=== PATIENT | female | born 1945 | race Caucasian/White ===

== ENCOUNTER 2020-04-21 20:50 | Inpatient (IN) ==
[2020-04-21] MEDS ORDERED: Ipratropium/Albuterol Neb 3 ML IH ONE (21:05)
[2020-04-21] MEDS ORDERED: methylPREDNISolone 125 MG/2 ML VIAL IVP ONE (21:05)
[2020-04-21] MEDS ORDERED: Isovue-370 500 ML BOTTLE IVP ONE (21:06)
[2020-04-21] MEDS ORDERED: Piperacillin/Tazobactam 3.375 GM in 0.9 % Sodium Chloride Mini Bag 100 ML IVPB ONE (21:09)
[2020-04-21] MEDS ORDERED: Vancomycin 2,000 MG/520 ML IV.SOLN IVPB ONE (21:09)
[2020-04-21] MEDS ORDERED: Acetaminophen 325 MG TABLET PO ONE (21:10)
[2020-04-21 21:21] LABS: VBG HCO3 30 mEq/L (21-27); VBG PCO2 63 mmHg (41-51); VBG PH 7.28 pH Units (7.32-7.42); VBG PO2 36 mmHg (25-50)
[2020-04-21 21:21] LABS: Basophils % 0.4 %; Eosinophils # 0.2 K/mcL (0.0-0.6); Hematocrit 39.2 % (35.3-44.9); Hemoglobin 12.2 g/dL (11.5-15.4); Immature Granulocytes % 0.3 % (0-4); Lymphocytes # 1.8 K/mcL (0.6-4.6); Lymphocytes % 16.6 %; Mean Corpuscular HGB Conc 31.1 g/dL (31.6-35.5); Mean Corpuscular Volume 83.4 fL (83.0-100.0); Mean Platelet Volume 10.5 fL (9.4-12.4); Monocytes % 8.8 %; Neutrophils # 7.7 K/mcL (1.6-8.9); Platelet Count 273 K/mcL (140-400); Red Cell Distribution Width 14.2 % (11.5-14.5); Segmented Neutrophils % 71.9 %; White Blood Count 10.8 K/mcL (4.3-11.1)
[2020-04-21 21:25] LABS: INR 1.2; Prothrombin Time 13.4 Seconds (9.4-12.1)
[2020-04-21 21:50] LABS: Alanine Aminotransferase 9 Units/L (7-52); Albumin 3.9 g/dL (3.5-5.7); Albumin/Globulin Ratio 1.1 (1.1-2.2); Alkaline Phosphatase 67 Units/L (34-104); Aspartate Amino Transferase 15 Units/L (13-39); BUN/Creatinine Ratio 17 (6-26); Bilirubin,Direct 0.1 mg/dL (0.0-0.2); Bilirubin,Indirect 0.2 mg/dL (0.0-1.0); Bilirubin,Total 0.3 mg/dL (0.3-1.0); Blood Urea Nitrogen 10 mg/dL (8-23); Carbon Dioxide 27 mEq/L (23-29); Chloride 100 mEq/L (98-107); Globulin 3.7 g/dL (2.4-3.5); Glucose 117 mg/dL (70-105); Magnesium 1.8 mg/dL (1.6-2.6); Osmolality,Calculated 280 (280-300); Sodium 135 mEq/L (136-145); Total Protein 7.6 g/dL (6.4-8.9); Troponin I < 0.03 ng/mL (< 0.04); eGFR For African Americans > 60 (> 60); eGFR For Non-African Americans > 60 (> 60)
[2020-04-21 21:58] LABS: Bacteria,Urine Few per hpf (None-Few); Bilirubin,Urine Negative (Negative); Blood,Urine Negative (Negative); Calcium Oxalate Crystals,Urine Present; Clarity,Urine Clear (Clear); Color,Urine Light-Yellow (Yellow); Glucose,Urine (UA) Normal (Normal); Hyaline Casts,Urine Few per lpf (None Seen); Ketones,Urine Negative (Negative); Leukocyte Esterase,Urine Large (Negative); Mucus,Urine Few per lpf (None-Few); Nitrite,Urine Positive (Negative); Protein,Urine Negative (Neg-Trace); Squamous Epithelial Cell,Urine Few per hpf (None-Few); Urobilinogen,Urine Normal (Normal); WBC,Urine 15-30 per hpf (0-3)
[2020-04-21] MEDS ORDERED: Azithromycin 500 MG in 0.9 % Sodium Chloride 250 ML IVPB ONE (23:33)
[2020-04-22] MEDS ORDERED: Naloxone 0.4 MG/ML INJ IVP PRN (01:55)
[2020-04-22] MEDS ORDERED: Ondansetron 4 MG/2 ML VIAL IVP PRN (01:57)
[2020-04-22] MEDS ORDERED: Acetaminophen 325 MG TABLET PO PRN (01:57)
[2020-04-22] MEDS ORDERED: D5% in Water 1,000 ML IVC PRN (01:58)
[2020-04-22] MEDS ORDERED: *HR* Dextrose 50 % in Water (Vial) 50 ML VIAL IVP PRN (01:58)
[2020-04-22] MEDS ORDERED: Dextrose Gel 15 GM/37.5 ML TUBE PO PRN ×2 (01:58)
[2020-04-22 04:20] LABS: Hematocrit 37.8 % (35.3-44.9); Hemoglobin 11.5 g/dL (11.5-15.4); Mean Corpuscular HGB Conc 30.4 g/dL (31.6-35.5); Mean Corpuscular Hemoglobin 25.3 pg (28.0-33.3); Mean Corpuscular Volume 83.1 fL (83.0-100.0); Mean Platelet Volume 10.8 fL (9.4-12.4); Platelet Count 266 K/mcL (140-400); Red Blood Count 4.55 M/mcL (3.82-4.97); Red Cell Distribution Width 14.2 % (11.5-14.5); White Blood Count 8.6 K/mcL (4.3-11.1)
[2020-04-22 04:37] LABS: BUN/Creatinine Ratio 16 (6-26); Blood Urea Nitrogen 8 mg/dL (8-23); Calcium 8.9 mg/dL (8.6-10.3); Carbon Dioxide 26 mEq/L (23-29); Chloride 105 mEq/L (98-107); Glucose 159 mg/dL (70-105); Osmolality,Calculated 292 (280-300); Phosphorous 2.3 mg/dL (2.7-4.5); Potassium 3.5 mEq/L (3.5-5.1); Sodium 140 mEq/L (136-145); eGFR For African Americans > 60 (> 60); eGFR For Non-African Americans > 60 (> 60)
[2020-04-22 04:38] LABS: Troponin I < 0.03 ng/mL (< 0.04)
[2020-04-22] MEDS: Insulin LISPRO 300 UNITS/3 ML VIAL SQ SCH ×4 (06:12→17:29)
[2020-04-22] MEDS: Piperacillin/Tazobactam 3.375 GM in 0.9 % Sodium Chloride Mini Bag 100 ML IVPB SCH ×2 (08:40→17:16)
[2020-04-22] MEDS ORDERED: Vancomycin 1,250 MG/262.5 ML IV.SOLN IVPB SCH (10:00)
[2020-04-22] MEDS: MethylPREDNISolone 40 MG/ML VIAL IVP SCH (17:16)
[2020-04-22] MEDS ORDERED: clonazePAM 1 MG TABLET PO PRN (18:31)
[2020-04-22] MEDS: Budesonide/Formoterol 80/4.5 1 PUFF INH IH SCH (20:22)
[2020-04-22] MEDS: Nicotine 21 MG PATCH.TD24 TD SCH (20:29)
[2020-04-22] MEDS ORDERED: Ipratropium/Albuterol Neb 3 ML IH PRN (20:30)
[2020-04-22] MEDS: Azithromycin 500 MG in D5% in Water 250 ML IVPB SCH (20:35)
[2020-04-22] MEDS ORDERED: Gabapentin 300 MG CAPSULE PO SCH (21:00)
[2020-04-23] MEDS: Insulin LISPRO 300 UNITS/3 ML VIAL SQ SCH ×5 (00:07→21:31)
[2020-04-23] MEDS: Piperacillin/Tazobactam 3.375 GM in 0.9 % Sodium Chloride Mini Bag 100 ML IVPB SCH ×3 (00:08→16:58)
[2020-04-23] MEDS: MethylPREDNISolone 40 MG/ML VIAL IVP SCH ×3 (00:08→16:57)
[2020-04-23] MEDS: Vancomycin 1,250 MG/262.5 ML IV.SOLN IVPB SCH (00:11)
[2020-04-23] MEDS ORDERED: Gabapentin 300 MG CAPSULE PO PRN (00:27)
[2020-04-23] MEDS: Budesonide/Formoterol 80/4.5 1 PUFF INH IH SCH ×2 (07:59→20:47)
[2020-04-23] MEDS: Gabapentin 300 MG CAPSULE PO SCH ×3 (08:36→21:31)
[2020-04-23] MEDS: Nicotine 21 MG PATCH.TD24 TD SCH (08:37)
[2020-04-23] MEDS: amLODIPine 5 MG TABLET PO SCH (08:37)
[2020-04-23] MEDS: Venlafaxine XR (24 HR) 150 MG CAP.ER.24H PO SCH (08:38)
[2020-04-23] MEDS ORDERED: Gabapentin 300 MG CAPSULE PO SCH (09:00)
[2020-04-23] MEDS: Vancomycin 1,500 MG/265 ML IV.SOLN IVPB SCH (16:58)
[2020-04-23] MEDS: Azithromycin 500 MG in D5% in Water 250 ML IVPB SCH (21:32)
[2020-04-24] MEDS: MethylPREDNISolone 40 MG/ML VIAL IVP SCH ×3 (00:51→16:25)
[2020-04-24] MEDS: Piperacillin/Tazobactam 3.375 GM in 0.9 % Sodium Chloride Mini Bag 100 ML IVPB SCH ×3 (00:52→16:26)
[2020-04-24] MEDS: Vancomycin 1,500 MG/265 ML IV.SOLN IVPB SCH ×2 (00:52→13:05)
[2020-04-24] MEDS: Insulin LISPRO 300 UNITS/3 ML VIAL SQ SCH ×3 (05:33→16:25)
[2020-04-24 06:22] LABS: Basophils % 0.1 %; Hematocrit 37.1 % (35.3-44.9); Hemoglobin 11.4 g/dL (11.5-15.4); Immature Granulocytes % 1.1 % (0-4); Lymphocytes # 0.5 K/mcL (0.6-4.6); Lymphocytes % 5.5 %; Mean Corpuscular HGB Conc 30.7 g/dL (31.6-35.5); Mean Corpuscular Hemoglobin 25.9 pg (28.0-33.3); Mean Corpuscular Volume 84.3 fL (83.0-100.0); Mean Platelet Volume 10.9 fL (9.4-12.4); Monocytes # 0.3 K/mcL (0.0-1.3); Monocytes % 3.2 %; Neutrophils # 8.7 K/mcL (1.6-8.9); Platelet Count 289 K/mcL (140-400); Red Cell Distribution Width 14.1 % (11.5-14.5); Segmented Neutrophils % 90.1 %; White Blood Count 9.6 K/mcL (4.3-11.1)
[2020-04-24 06:23] LABS: INR 1.2; Prothrombin Time 13.7 Seconds (9.4-12.1)
[2020-04-24 06:41] LABS: BUN/Creatinine Ratio 30 (6-26); Blood Urea Nitrogen 15 mg/dL (8-23); Calcium 9.1 mg/dL (8.6-10.3); Carbon Dioxide 26 mEq/L (23-29); Chloride 106 mEq/L (98-107); Glucose 321 mg/dL (70-105); Osmolality,Calculated 301 (280-300); Potassium 3.9 mEq/L (3.5-5.1); Sodium 139 mEq/L (136-145); eGFR For African Americans > 60 (> 60); eGFR For Non-African Americans > 60 (> 60)
[2020-04-24] MEDS: Vancomycin 1,250 MG/262.5 ML IV.SOLN IVPB SCH (07:20)
[2020-04-24] MEDS ORDERED: *HR* Propofol 200 MG/20 ML VIAL IVP ONE (07:33)
[2020-04-24] MEDS ORDERED: Ondansetron 4 MG/2 ML VIAL ONE (07:33)
[2020-04-24] MEDS ORDERED: Dexamethasone 4 MG/ML VIAL ONE (07:33)
[2020-04-24] MEDS ORDERED: Lidocaine -MPF 2% 2 ML VIAL ONE (07:33)
[2020-04-24] MEDS ORDERED: Lidocaine -MPF 4% 5 ML AMPUL ONE (07:33)
[2020-04-24] MEDS ORDERED: *HR* Succinylcholine 200 MG/10 ML VIAL IVP ONE (07:33)
[2020-04-24] MEDS ORDERED: *HR* Labetalol 20 MG/4 ML SYRINGE IVP PRN (07:44)
[2020-04-24] MEDS ORDERED: Ondansetron 4 MG/2 ML VIAL IVP PRN (07:44)
[2020-04-24] MEDS ORDERED: *HR* HYDROmorphone (PF) 1 MG/ML SYRINGE IVP PRN (07:44)
[2020-04-24] MEDS ORDERED: *HR* Metoprolol 5 MG/5 ML VIAL IVP ONE (08:41)
[2020-04-24] MEDS ORDERED: Albuterol 2.5 MG/3 ML NEBULIZER ONE (09:25)
[2020-04-24] MEDS: amLODIPine 5 MG TABLET PO SCH (10:19)
[2020-04-24] MEDS: Gabapentin 300 MG CAPSULE PO SCH ×3 (10:20→21:46)
[2020-04-24] MEDS: Venlafaxine XR (24 HR) 150 MG CAP.ER.24H PO SCH (10:20)
[2020-04-24] MEDS: Nicotine 21 MG PATCH.TD24 TD SCH (10:25)
[2020-04-24] MEDS: Ipratropium/Albuterol Neb 3 ML IH SCH ×5 (12:14→19:40)
[2020-04-24] MEDS: Budesonide/Formoterol 80/4.5 1 PUFF INH IH SCH ×2 (12:15→19:41)
[2020-04-24 13:58] LABS: Appearance of Body Fluid Hazy (Clear); Volume of Body Fluid 18 mL
[2020-04-24 13:59] LABS: Appearance of Body Fluid Cloudy (Clear); Volume of Body Fluid 13 mL
[2020-04-24] MEDS ORDERED: Insulin LISPRO 300 UNITS/3 ML VIAL SQ SCH (21:00)
[2020-04-24] MEDS: Azithromycin 500 MG in D5% in Water 250 ML IVPB SCH (21:47)
[2020-04-24] MEDS: Ipratropium/Albuterol Neb 3 ML IH PRN (23:32)
[2020-04-25] MEDS: MethylPREDNISolone 40 MG/ML VIAL IVP SCH ×2 (00:08→07:20)
[2020-04-25] MEDS: Piperacillin/Tazobactam 3.375 GM in 0.9 % Sodium Chloride Mini Bag 100 ML IVPB SCH ×2 (00:08→07:19)
[2020-04-25] MEDS: Vancomycin 1,500 MG/265 ML IV.SOLN IVPB SCH (03:03)
[2020-04-25 07:06] VITALS: BP 152/74
[2020-04-25 07:12] LABS: Basophils % 0.2 %; Hematocrit 37.7 % (35.3-44.9); Hemoglobin 11.5 g/dL (11.5-15.4); Immature Granulocytes % 1.2 % (0-4); Lymphocytes # 0.5 K/mcL (0.6-4.6); Lymphocytes % 4.6 %; Mean Corpuscular HGB Conc 30.5 g/dL (31.6-35.5); Mean Corpuscular Hemoglobin 25.7 pg (28.0-33.3); Mean Corpuscular Volume 84.2 fL (83.0-100.0); Mean Platelet Volume 10.5 fL (9.4-12.4); Monocytes # 0.6 K/mcL (0.0-1.3); Monocytes % 5.6 %; Neutrophils # 8.9 K/mcL (1.6-8.9); Platelet Count 294 K/mcL (140-400); Red Blood Count 4.48 M/mcL (3.82-4.97); Red Cell Distribution Width 14.3 % (11.5-14.5); Segmented Neutrophils % 88.4 %; White Blood Count 10.1 K/mcL (4.3-11.1)
[2020-04-25] MEDS: Nicotine 21 MG PATCH.TD24 TD SCH (07:19)
[2020-04-25] MEDS: Venlafaxine XR (24 HR) 150 MG CAP.ER.24H PO SCH (07:20)
[2020-04-25] MEDS: amLODIPine 5 MG TABLET PO SCH (07:20)
[2020-04-25] MEDS: Gabapentin 300 MG CAPSULE PO SCH (07:20)
[2020-04-25] MEDS: Insulin LISPRO 300 UNITS/3 ML VIAL SQ SCH (07:20)
[2020-04-25 07:33] LABS: BUN/Creatinine Ratio 26 (6-26); Blood Urea Nitrogen 14 mg/dL (8-23); Carbon Dioxide 25 mEq/L (23-29); Chloride 105 mEq/L (98-107); Glucose 385 mg/dL (70-105); Osmolality,Calculated 300 (280-300); Sodium 137 mEq/L (136-145); eGFR For African Americans > 60 (> 60); eGFR For Non-African Americans > 60 (> 60)
[2020-04-25] MEDS: Budesonide/Formoterol 80/4.5 1 PUFF INH IH SCH (08:11)
[2020-04-25] MEDS: Ipratropium/Albuterol Neb 3 ML IH PRN (08:11)
[2020-04-25] MEDS ORDERED: Insulin LISPRO 300 UNITS/3 ML VIAL SQ SCH ×2 (08:45→08:46)
== END 2020-04-25 13:17 | disposition home or self-care (01) | DRG 871 ==
LOC: 3BNU 20:50 → EMEROOARM 20:50 → 3BNU 04-22 01:20
PROVIDERS: ADMIT Internal Medicine; ATTEND Internal Medicine

== ENCOUNTER 2020-04-26 19:44 | Observation (INO) ==
[2020-04-26] MEDS ORDERED: D5% in 0.9% NACL 1,000 ML IVC SCH (20:00)
[2020-04-26 20:18] LABS: Basophils % 0.1 %; Eosinophils % 0.3 %; Hematocrit 42.6 % (35.3-44.9); Immature Granulocytes % 0.7 % (0-4); Lymphocytes # 1.4 K/mcL (0.6-4.6); Lymphocytes % 10.5 %; Mean Corpuscular HGB Conc 30.5 g/dL (31.6-35.5); Mean Corpuscular Hemoglobin 25.2 pg (28.0-33.3); Mean Corpuscular Volume 82.6 fL (83.0-100.0); Mean Platelet Volume 10.6 fL (9.4-12.4); Monocytes # 1.3 K/mcL (0.0-1.3); Monocytes % 9.5 %; Neutrophils # 10.8 K/mcL (1.6-8.9); Platelet Count 287 K/mcL (140-400); Red Blood Count 5.16 M/mcL (3.82-4.97); Red Cell Distribution Width 14.1 % (11.5-14.5); Segmented Neutrophils % 78.9 %; White Blood Count 13.7 K/mcL (4.3-11.1)
[2020-04-26 20:22] LABS: INR 1.2
[2020-04-26 20:25] LABS: Activated Partial Thrombo Time 24.4 Seconds (26.0-36.0)
[2020-04-26 20:36] LABS: Alanine Aminotransferase 13 Units/L (7-52); Albumin 3.6 g/dL (3.5-5.7); Albumin/Globulin Ratio 1.2 (1.1-2.2); Alkaline Phosphatase 57 Units/L (34-104); Aspartate Amino Transferase 18 Units/L (13-39); BUN/Creatinine Ratio 23 (6-26); Bilirubin,Direct 0.1 mg/dL (0.0-0.2); Bilirubin,Indirect 0.2 mg/dL (0.0-1.0); Bilirubin,Total 0.3 mg/dL (0.3-1.0); Blood Urea Nitrogen 12 mg/dL (8-23); Calcium 8.9 mg/dL (8.6-10.3); Carbon Dioxide 29 mEq/L (23-29); Chloride 103 mEq/L (98-107); Globulin 2.9 g/dL (2.4-3.5); Glucose 201 mg/dL (70-105); Osmolality,Calculated 293 (280-300); Potassium 3.2 mEq/L (3.5-5.1); Sodium 139 mEq/L (136-145); Total Protein 6.5 g/dL (6.4-8.9); Troponin I < 0.03 ng/mL (< 0.04); eGFR For African Americans > 60 (> 60); eGFR For Non-African Americans > 60 (> 60)
[2020-04-26 20:56] LABS: Bilirubin,Urine Negative (Negative); Blood,Urine Negative (Negative); Clarity,Urine Clear (Clear); Color,Urine Colorless (Yellow); Glucose,Urine (UA) 50 mg/dL (Normal); Ketones,Urine Negative (Negative); Leukocyte Esterase,Urine Negative (Negative); Nitrite,Urine Negative (Negative); Protein,Urine Negative (Neg-Trace); RBC,Urine 0-3 per hpf (0-3); Specific Gravity,Urine 1.008 (1.010-1.025); Squamous Epithelial Cell,Urine Few per hpf (None-Few); Urobilinogen,Urine Normal (Normal); WBC,Urine 0-3 per hpf (0-3)
[2020-04-26] MEDS ORDERED: Isovue-370 500 ML BOTTLE IVP ONE (21:04)
[2020-04-26] MEDS ORDERED: Vancomycin 1,750 MG/517.5 ML IV.SOLN IVPB ONE (22:38)
[2020-04-26] MEDS ORDERED: Piperacillin/Tazobactam 3.375 GM in 0.9 % Sodium Chloride Mini Bag 100 ML IVPB ONE ×2 (22:38→22:58)
[2020-04-26] MEDS ORDERED: Acetaminophen 325 MG TABLET PO PRN (23:52)
[2020-04-26] MEDS ORDERED: Ondansetron 4 MG/2 ML VIAL IVP PRN (23:52)
[2020-04-27] MEDS ORDERED: clonazePAM 1 MG TABLET PO PRN (00:05)
[2020-04-27] MEDS: Albuterol 2.5 MG/3 ML NEBULIZER IH PRN ×3 (03:09→07:46)
[2020-04-27] MEDS: Acetylcysteine 10% 2 ML INHSOL IH SCH ×6 (04:37→23:58)
[2020-04-27 05:33] LABS: Hematocrit 41.4 % (35.3-44.9); Hemoglobin 12.7 g/dL (11.5-15.4); Mean Corpuscular HGB Conc 30.7 g/dL (31.6-35.5); Mean Corpuscular Hemoglobin 25.2 pg (28.0-33.3); Mean Corpuscular Volume 82.3 fL (83.0-100.0); Mean Platelet Volume 10.8 fL (9.4-12.4); Platelet Count 245 K/mcL (140-400); Red Blood Count 5.03 M/mcL (3.82-4.97); Red Cell Distribution Width 14.2 % (11.5-14.5); White Blood Count 12.3 K/mcL (4.3-11.1)
[2020-04-27 05:53] LABS: BUN/Creatinine Ratio 18 (6-26); Blood Urea Nitrogen 8 mg/dL (8-23); Calcium 8.7 mg/dL (8.6-10.3); Carbon Dioxide 25 mEq/L (23-29); Chloride 105 mEq/L (98-107); Glucose 247 mg/dL (70-105); Magnesium 1.7 mg/dL (1.6-2.6); Osmolality,Calculated 293 (280-300); Potassium 3.7 mEq/L (3.5-5.1); Sodium 138 mEq/L (136-145); eGFR For African Americans > 60 (> 60); eGFR For Non-African Americans > 60 (> 60)
[2020-04-27] MEDS: Piperacillin/Tazobactam 3.375 GM in 0.9 % Sodium Chloride Mini Bag 100 ML IVPB SCH ×2 (07:54→15:53)
[2020-04-27] MEDS: Nicotine 21 MG PATCH.TD24 TD SCH (07:54)
[2020-04-27] MEDS: Losartan/HCTZ 50-12.5 TABLET PO SCH (08:06)
[2020-04-27] MEDS: Venlafaxine XR (24 HR) 150 MG CAP.ER.24H PO SCH (08:06)
[2020-04-27] MEDS: Aspirin Enteric Coated 81 MG Tablet PO SCH (08:06)
[2020-04-27] MEDS: Gabapentin 300 MG CAPSULE PO SCH ×3 (08:06→20:53)
[2020-04-27] MEDS: amLODIPine 5 MG TABLET PO SCH (08:07)
[2020-04-27] MEDS: Insulin NPH/REG 70/30 100 UNIT/ML (x5UNIT) SQ SCH (08:20)
[2020-04-27] MEDS ORDERED: Gabapentin 300 MG CAPSULE PO SCH (09:00)
[2020-04-27] MEDS: Doxycycline 100 MG CAPSULE PO SCH ×2 (10:17→20:53)
[2020-04-27] MEDS: Ipratropium/Albuterol Neb 3 ML IH SCH ×5 (10:52→23:58)
[2020-04-27] MEDS ORDERED: Acetylcysteine 10% 2 ML INHSOL IH SCH (11:00)
[2020-04-27] MEDS ORDERED: Dextrose Gel 15 GM/37.5 ML TUBE PO PRN ×2 (14:11)
[2020-04-27] MEDS ORDERED: D5% in Water 1,000 ML IVC PRN (14:11)
[2020-04-27] MEDS ORDERED: *HR* Dextrose 50 % in Water (Vial) 50 ML VIAL IVP PRN (14:11)
[2020-04-27] MEDS: predniSONE 20 MG TABLET PO SCH (15:57)
[2020-04-27] MEDS: Insulin LISPRO 300 UNITS/3 ML VIAL SQ SCH ×2 (15:58→16:04)
[2020-04-27] MEDS: *HR* Heparin 5,000 UNIT/ML VIAL SQ SCH (20:26)
[2020-04-27] MEDS ORDERED: Insulin LISPRO 300 UNITS/3 ML VIAL SQ SCH (21:00)
[2020-04-27] MEDS ORDERED: Insulin NPH/REG 70/30 100 UNIT/ML (x5UNIT) SQ SCH (21:00)
[2020-04-28] MEDS: Piperacillin/Tazobactam 3.375 GM in 0.9 % Sodium Chloride Mini Bag 100 ML IVPB SCH ×2 (00:24→08:31)
[2020-04-28] MEDS: Ipratropium/Albuterol Neb 3 ML IH SCH ×3 (04:03→11:02)
[2020-04-28] MEDS: Acetylcysteine 10% 2 ML INHSOL IH SCH ×3 (04:04→11:02)
[2020-04-28] MEDS: *HR* Heparin 5,000 UNIT/ML VIAL SQ SCH (04:39)
[2020-04-28 08:28] LABS: Basophils % 0.1 %; Eosinophils % 0.2 %; Hematocrit 41.3 % (35.3-44.9); Hemoglobin 12.5 g/dL (11.5-15.4); Immature Granulocytes % 0.6 % (0-4); Lymphocytes # 1.6 K/mcL (0.6-4.6); Lymphocytes % 11.1 %; Mean Corpuscular HGB Conc 30.3 g/dL (31.6-35.5); Mean Corpuscular Volume 82.6 fL (83.0-100.0); Mean Platelet Volume 11.5 fL (9.4-12.4); Monocytes # 1.2 K/mcL (0.0-1.3); Monocytes % 8.5 %; Neutrophils # 11.3 K/mcL (1.6-8.9); Platelet Count 292 K/mcL (140-400); Red Cell Distribution Width 14.4 % (11.5-14.5); Segmented Neutrophils % 79.5 %; White Blood Count 14.2 K/mcL (4.3-11.1)
[2020-04-28] MEDS: Losartan/HCTZ 50-12.5 TABLET PO SCH (08:29)
[2020-04-28] MEDS: predniSONE 20 MG TABLET PO SCH (08:30)
[2020-04-28] MEDS: Nicotine 21 MG PATCH.TD24 TD SCH (08:30)
[2020-04-28] MEDS: amLODIPine 5 MG TABLET PO SCH (08:30)
[2020-04-28] MEDS: Gabapentin 300 MG CAPSULE PO SCH (08:30)
[2020-04-28] MEDS: Venlafaxine XR (24 HR) 150 MG CAP.ER.24H PO SCH (08:30)
[2020-04-28] MEDS: Aspirin Enteric Coated 81 MG Tablet PO SCH (08:30)
[2020-04-28] MEDS: Doxycycline 100 MG CAPSULE PO SCH (08:30)
[2020-04-28] MEDS: Insulin LISPRO 300 UNITS/3 ML VIAL SQ SCH (08:31)
[2020-04-28] MEDS: Insulin NPH/REG 70/30 100 UNIT/ML (x5UNIT) SQ SCH (08:36)
[2020-04-28] MEDS ORDERED: Budesonide/Formoterol 80/4.5 1 PUFF INH IH SCH (10:00)
[2020-04-28 13:18] VITALS: BP 111/60
[2020-04-29] MEDS ORDERED: Insulin NPH/REG 70/30 100 UNIT/ML (x5UNIT) SQ SCH (09:00)
== END 2020-04-28 15:32 | disposition home health service (06) ==
LOC: EMEROOARM 19:44 → 3BNU 19:44 → SUATTDRO 23:45 → 3BNU 04-27 01:02
PROVIDERS: ADMIT Internal Medicine; ATTEND Internal Medicine

== ENCOUNTER 2020-04-29 13:01 | Inpatient (IN) ==
[2020-04-29] MEDS ORDERED: Isovue-370 500 ML BOTTLE IVP ONE (13:05)
[2020-04-29] MEDS ORDERED: Dexamethasone 4 MG/ML VIAL IVP ONE (13:05)
[2020-04-29] MEDS ORDERED: Ipratropium/Albuterol Neb 3 ML IH ONE (13:05)
[2020-04-29] MEDS ORDERED: Ondansetron 4 MG/2 ML VIAL IVP ONE (13:07)
[2020-04-29] MEDS ORDERED: 0.9 % Sodium Chloride 1,000 ML IVC ONE (13:09)
[2020-04-29 13:46] LABS: Basophils % 0.1 %; Eosinophils # 0.2 K/mcL (0.0-0.6); Eosinophils % 1.3 %; Hematocrit 39.3 % (35.3-44.9); Hemoglobin 12.1 g/dL (11.5-15.4); Immature Granulocytes % 0.5 % (0-4); Lymphocytes # 1.5 K/mcL (0.6-4.6); Lymphocytes % 10.3 %; Mean Corpuscular HGB Conc 30.8 g/dL (31.6-35.5); Mean Corpuscular Hemoglobin 25.9 pg (28.0-33.3); Mean Corpuscular Volume 84.2 fL (83.0-100.0); Mean Platelet Volume 11.5 fL (9.4-12.4); Monocytes # 1.5 K/mcL (0.0-1.3); Monocytes % 10.1 %; Neutrophils # 11.4 K/mcL (1.6-8.9); Platelet Count 264 K/mcL (140-400); Red Blood Count 4.67 M/mcL (3.82-4.97); Red Cell Distribution Width 14.6 % (11.5-14.5); Segmented Neutrophils % 77.7 %; White Blood Count 14.7 K/mcL (4.3-11.1)
[2020-04-29 14:23] LABS: VBG HCO3 31 mEq/L (21-27); VBG PCO2 56 mmHg (41-51); VBG PH 7.35 pH Units (7.32-7.42); VBG PO2 47 mmHg (25-50)
[2020-04-29 14:47] LABS: BUN/Creatinine Ratio 26 (6-26); Blood Urea Nitrogen 16 mg/dL (8-23); Carbon Dioxide 27 mEq/L (23-29); Chloride 102 mEq/L (98-107); Glucose 276 mg/dL (70-105); Magnesium 1.7 mg/dL (1.6-2.6); Osmolality,Calculated 295 (280-300); Phosphorous 1.4 mg/dL (2.7-4.5); Sodium 137 mEq/L (136-145); eGFR For African Americans > 60 (> 60); eGFR For Non-African Americans > 60 (> 60)
[2020-04-29] MEDS ORDERED: Prochlorperazine 10 MG/2 ML VIAL IVP STA (14:51)
[2020-04-29] MEDS ORDERED: Morphine Sulfate 2 MG/ML SYRINGE IVP ONE (14:54)
[2020-04-29] MEDS ORDERED: Potassium Phosphate 44 MEQ in 0.9 % Sodium Chloride 250 ML IVPB ONE (15:45)
[2020-04-29 16:34] LABS: Bilirubin,Urine Negative (Negative); Blood,Urine Negative (Negative); Clarity,Urine Clear (Clear); Color,Urine Colorless (Yellow); Glucose,Urine (UA) 300 mg/dL (Normal); Ketones,Urine Negative (Negative); Leukocyte Esterase,Urine Negative (Negative); Nitrite,Urine Negative (Negative); PH,Urine 6.5 pH Units (5.0-8.0); Protein,Urine Negative (Neg-Trace); RBC,Urine 0-3 per hpf (0-3); Specific Gravity,Urine 1.018 (1.010-1.025); Squamous Epithelial Cell,Urine Few per hpf (None-Few); Urobilinogen,Urine Normal (Normal); WBC,Urine 0-3 per hpf (0-3)
[2020-04-29] MEDS ORDERED: Naloxone 0.4 MG/ML INJ IVP PRN (18:18)
[2020-04-29] MEDS ORDERED: Dextrose Gel 15 GM/37.5 ML TUBE PO PRN ×2 (18:18)
[2020-04-29] MEDS ORDERED: *HR* Dextrose 50 % in Water (Vial) 50 ML VIAL IVP PRN (18:18)
[2020-04-29] MEDS ORDERED: D5% in Water 1,000 ML IVC PRN (18:18)
[2020-04-29 19:20] LABS: INR 1.2; Prothrombin Time 13.4 Seconds (9.4-12.1)
[2020-04-29] MEDS ORDERED: D5% in Lactated Ringers 1,000 ML IVC SCH (19:30)
[2020-04-29] MEDS ORDERED: clonazePAM 1 MG TABLET PO PRN (19:42)
[2020-04-29 19:59] LABS: Alanine Aminotransferase 9 Units/L (7-52); Albumin 3.4 g/dL (3.5-5.7); Albumin/Globulin Ratio 1.1 (1.1-2.2); Alkaline Phosphatase 49 Units/L (34-104); Aspartate Amino Transferase 22 Units/L (13-39); Bilirubin,Direct 0.1 mg/dL (0.0-0.2); Bilirubin,Indirect 0.2 mg/dL (0.0-1.0); Bilirubin,Total 0.3 mg/dL (0.3-1.0); Globulin 3.1 g/dL (2.4-3.5); Total Protein 6.5 g/dL (6.4-8.9)
[2020-04-29] MEDS: Azithromycin 500 MG in 0.9 % Sodium Chloride 250 ML IVPB SCH (20:07)
[2020-04-29] MEDS: Ipratropium/Albuterol Neb 3 ML IH SCH (20:37)
[2020-04-29] MEDS: Budesonide/Formoterol 80/4.5 1 PUFF INH IH SCH (20:37)
[2020-04-29] MEDS: *HR* Heparin 5,000 UNIT/ML VIAL SQ SCH (21:14)
[2020-04-29] MEDS: Gabapentin 300 MG CAPSULE PO SCH (21:14)
[2020-04-29] MEDS: Insulin LISPRO 300 UNITS/3 ML VIAL SQ SCH ×2 (21:15→21:33)
[2020-04-29] MEDS: Insulin DETEMIR 100 UNIT/ML X5UNITS SQ SCH (21:31)
[2020-04-29] MEDS: Nicotine 21 MG PATCH.TD24 TD SCH (22:47)
[2020-04-30] MEDS: Ipratropium/Albuterol Neb 3 ML IH SCH ×6 (00:01→20:27)
[2020-04-30] MEDS: Piperacillin/Tazobactam 3.375 GM in 0.9 % Sodium Chloride Mini Bag 100 ML IVPB SCH ×4 (00:17→23:55)
[2020-04-30 04:35] LABS: Basophils % 0.1 %; Hematocrit 36.4 % (35.3-44.9); Hemoglobin 11.1 g/dL (11.5-15.4); Immature Granulocytes % 0.6 % (0-4); Lymphocytes # 0.6 K/mcL (0.6-4.6); Mean Corpuscular HGB Conc 30.5 g/dL (31.6-35.5); Mean Corpuscular Hemoglobin 25.3 pg (28.0-33.3); Mean Corpuscular Volume 83.1 fL (83.0-100.0); Mean Platelet Volume 10.8 fL (9.4-12.4); Monocytes # 0.6 K/mcL (0.0-1.3); Monocytes % 6.5 %; Neutrophils # 8.3 K/mcL (1.6-8.9); Platelet Count 239 K/mcL (140-400); Red Blood Count 4.38 M/mcL (3.82-4.97); Red Cell Distribution Width 14.4 % (11.5-14.5); Segmented Neutrophils % 86.8 %; White Blood Count 9.6 K/mcL (4.3-11.1)
[2020-04-30 04:58] LABS: BUN/Creatinine Ratio 26 (6-26); Blood Urea Nitrogen 14 mg/dL (8-23); Calcium 8.8 mg/dL (8.6-10.3); Carbon Dioxide 29 mEq/L (23-29); Chloride 103 mEq/L (98-107); Glucose 339 mg/dL (70-105); Osmolality,Calculated 302 (280-300); Phosphorous 2.5 mg/dL (2.7-4.5); Potassium 3.8 mEq/L (3.5-5.1); Sodium 139 mEq/L (136-145); eGFR For African Americans > 60 (> 60); eGFR For Non-African Americans > 60 (> 60)
[2020-04-30] MEDS: MethylPREDNISolone 40 MG/ML VIAL IVP SCH ×2 (06:28→16:20)
[2020-04-30] MEDS: *HR* Heparin 5,000 UNIT/ML VIAL SQ SCH ×3 (06:28→20:37)
[2020-04-30] MEDS: Insulin LISPRO 300 UNITS/3 ML VIAL SQ SCH ×6 (07:44→21:11)
[2020-04-30] MEDS: Budesonide/Formoterol 80/4.5 1 PUFF INH IH SCH ×2 (07:45→20:27)
[2020-04-30] MEDS: Aspirin Enteric Coated 81 MG Tablet PO SCH (08:11)
[2020-04-30] MEDS: Venlafaxine XR (24 HR) 150 MG CAP.ER.24H PO SCH (08:11)
[2020-04-30] MEDS: Losartan/HCTZ 50-12.5 TABLET PO SCH (08:11)
[2020-04-30] MEDS: amLODIPine 5 MG TABLET PO SCH (08:11)
[2020-04-30] MEDS: Insulin DETEMIR 100 UNIT/ML X5UNITS SQ SCH ×2 (08:12→20:37)
[2020-04-30] MEDS: Nicotine 21 MG PATCH.TD24 TD SCH (08:12)
[2020-04-30] MEDS: Gabapentin 300 MG CAPSULE PO SCH ×2 (08:12→20:37)
[2020-04-30 09:51] LABS: Adenovirus Not Detected (Not Detect); Bordetella Pertussis Not Detected (Not Detect); Chlamydophila pneumoniae Not Detected (Not Detect); Coronavirus 229E Not Detected (Not Detect); Coronavirus HKU1 Not Detected (Not Detect); Coronavirus NL63 Not Detected (Not Detect); Coronavirus OC43 Not Detected (Not Detect); Human Metapneumovirus Not Detected (Not Detect); Human Rhinovirus/Enterovirus Not Detected (Not Detect); Influenza A Subtype 2009 H1 Not Detected (Not Detect); Influenza B Not Detected (Not Detect); Mycoplasma pneumoniae Not Detected (Not Detect); Parainfluenza Virus 1 Not Detected (Not Detect); Parainfluenza Virus 2 Not Detected (Not Detect); Parainfluenza Virus 3 Not Detected (Not Detect); Parainfluenza Virus 4 Not Detected (Not Detect); Respiratory Syncytial Virus Not Detected (Not Detect); SARS-CoV-2 Not Detected (Not Detect)
[2020-04-30] MEDS: polyethylene glycoL 3350 17 GM POWD.PACK PO SCH (12:01)
[2020-04-30] MEDS ORDERED: Metoclopramide 10 MG/2 ML VIAL IVP ONE (17:16)
[2020-04-30] MEDS: Azithromycin 500 MG in 0.9 % Sodium Chloride 250 ML IVPB SCH (17:39)
[2020-04-30] MEDS: Ibuprofen 600 MG TABLET PO PRN (17:40)
[2020-05-01] MEDS: Ipratropium/Albuterol Neb 3 ML IH SCH ×7 (00:15→23:16)
[2020-05-01] MEDS: *HR* Heparin 5,000 UNIT/ML VIAL SQ SCH ×3 (05:05→20:03)
[2020-05-01] MEDS: MethylPREDNISolone 40 MG/ML VIAL IVP SCH ×3 (05:06→23:41)
[2020-05-01 06:34] LABS: Basophils % 0.1 %; Hematocrit 36.5 % (35.3-44.9); Hemoglobin 11.2 g/dL (11.5-15.4); Immature Granulocytes % 1.3 % (0-4); Lymphocytes # 0.9 K/mcL (0.6-4.6); Lymphocytes % 7.3 %; Mean Corpuscular HGB Conc 30.7 g/dL (31.6-35.5); Mean Corpuscular Hemoglobin 25.7 pg (28.0-33.3); Mean Corpuscular Volume 83.9 fL (83.0-100.0); Mean Platelet Volume 11.2 fL (9.4-12.4); Monocytes # 1.1 K/mcL (0.0-1.3); Monocytes % 8.8 %; Neutrophils # 9.9 K/mcL (1.6-8.9); Platelet Count 256 K/mcL (140-400); Red Blood Count 4.35 M/mcL (3.82-4.97); Red Cell Distribution Width 14.6 % (11.5-14.5); Segmented Neutrophils % 82.5 %
[2020-05-01 06:51] LABS: BUN/Creatinine Ratio 29 (6-26); Blood Urea Nitrogen 14 mg/dL (8-23); Calcium 8.9 mg/dL (8.6-10.3); Carbon Dioxide 30 mEq/L (23-29); Chloride 104 mEq/L (98-107); Glucose 273 mg/dL (70-105); Osmolality,Calculated 298 (280-300); Phosphorous 2.3 mg/dL (2.7-4.5); Potassium 3.6 mEq/L (3.5-5.1); Sodium 139 mEq/L (136-145); eGFR For African Americans > 60 (> 60); eGFR For Non-African Americans > 60 (> 60)
[2020-05-01] MEDS: Insulin LISPRO 300 UNITS/3 ML VIAL SQ SCH ×4 (08:32→20:03)
[2020-05-01] MEDS: Piperacillin/Tazobactam 3.375 GM in 0.9 % Sodium Chloride Mini Bag 100 ML IVPB SCH ×3 (08:33→23:42)
[2020-05-01] MEDS: Losartan/HCTZ 50-12.5 TABLET PO SCH (08:33)
[2020-05-01] MEDS: polyethylene glycoL 3350 17 GM POWD.PACK PO SCH (08:33)
[2020-05-01] MEDS: Aspirin Enteric Coated 81 MG Tablet PO SCH (08:34)
[2020-05-01] MEDS: Gabapentin 300 MG CAPSULE PO SCH ×2 (08:34→20:04)
[2020-05-01] MEDS: amLODIPine 5 MG TABLET PO SCH (08:34)
[2020-05-01] MEDS: Venlafaxine XR (24 HR) 150 MG CAP.ER.24H PO SCH (08:34)
[2020-05-01] MEDS: Insulin DETEMIR 100 UNIT/ML X5UNITS SQ SCH ×2 (08:34→20:03)
[2020-05-01] MEDS: Nicotine 21 MG PATCH.TD24 TD SCH (08:34)
[2020-05-01] MEDS: Budesonide/Formoterol 80/4.5 1 PUFF INH IH SCH ×2 (11:19→20:26)
[2020-05-01] MEDS: Azithromycin 500 MG in 0.9 % Sodium Chloride 250 ML IVPB SCH (17:28)
[2020-05-02] MEDS: Ipratropium/Albuterol Neb 3 ML IH SCH ×5 (03:58→20:07)
[2020-05-02 04:28] LABS: Basophils % 0.1 %; Hematocrit 39.5 % (35.3-44.9); Hemoglobin 12.3 g/dL (11.5-15.4); Immature Granulocytes % 1.4 % (0-4); Lymphocytes # 0.5 K/mcL (0.6-4.6); Lymphocytes % 4.1 %; Mean Corpuscular HGB Conc 31.1 g/dL (31.6-35.5); Mean Corpuscular Hemoglobin 25.7 pg (28.0-33.3); Mean Corpuscular Volume 82.5 fL (83.0-100.0); Mean Platelet Volume 10.9 fL (9.4-12.4); Monocytes # 0.4 K/mcL (0.0-1.3); Monocytes % 3.3 %; Neutrophils # 10.7 K/mcL (1.6-8.9); Platelet Count 268 K/mcL (140-400); Red Blood Count 4.79 M/mcL (3.82-4.97); Red Cell Distribution Width 14.6 % (11.5-14.5); Segmented Neutrophils % 91.1 %; White Blood Count 11.7 K/mcL (4.3-11.1)
[2020-05-02 04:46] LABS: BUN/Creatinine Ratio 27 (6-26); Blood Urea Nitrogen 14 mg/dL (8-23); Calcium 9.2 mg/dL (8.6-10.3); Carbon Dioxide 27 mEq/L (23-29); Chloride 102 mEq/L (98-107); Glucose 294 mg/dL (70-105); Osmolality,Calculated 295 (280-300); Sodium 137 mEq/L (136-145); eGFR For African Americans > 60 (> 60); eGFR For Non-African Americans > 60 (> 60)
[2020-05-02] MEDS: *HR* Heparin 5,000 UNIT/ML VIAL SQ SCH ×3 (05:17→20:13)
[2020-05-02] MEDS: polyethylene glycoL 3350 17 GM POWD.PACK PO SCH (07:26)
[2020-05-02] MEDS: MethylPREDNISolone 40 MG/ML VIAL IVP SCH ×2 (07:27→17:21)
[2020-05-02] MEDS: Piperacillin/Tazobactam 3.375 GM in 0.9 % Sodium Chloride Mini Bag 100 ML IVPB SCH ×2 (07:28→17:20)
[2020-05-02] MEDS: Insulin LISPRO 300 UNITS/3 ML VIAL SQ SCH ×4 (07:32→20:14)
[2020-05-02] MEDS: Insulin DETEMIR 100 UNIT/ML X5UNITS SQ SCH ×2 (07:33→20:14)
[2020-05-02] MEDS: Nicotine 21 MG PATCH.TD24 TD SCH (07:34)
[2020-05-02] MEDS: Losartan/HCTZ 50-12.5 TABLET PO SCH (07:36)
[2020-05-02] MEDS: Venlafaxine XR (24 HR) 150 MG CAP.ER.24H PO SCH (07:36)
[2020-05-02] MEDS: amLODIPine 5 MG TABLET PO SCH (07:36)
[2020-05-02] MEDS: Aspirin Enteric Coated 81 MG Tablet PO SCH (07:36)
[2020-05-02] MEDS: Gabapentin 300 MG CAPSULE PO SCH ×2 (07:36→20:14)
[2020-05-02] MEDS: Budesonide/Formoterol 80/4.5 1 PUFF INH IH SCH ×2 (07:52→20:07)
[2020-05-02] MEDS: Ondansetron 4 MG/2 ML VIAL IVP PRN (10:51)
[2020-05-02] MEDS ORDERED: Insulin DETEMIR 100 UNIT/ML X5UNITS SQ ONE (11:49)
[2020-05-02] MEDS: Ibuprofen 600 MG TABLET PO PRN ×2 (11:52→20:14)
[2020-05-02] MEDS ORDERED: *HR* HYDROcodone/Acet 10/325 mg TABLET PO ONE (14:18)
[2020-05-02] MEDS: Azithromycin 250 MG TABLET PO SCH (17:21)
[2020-05-02] MEDS ORDERED: Isovue-370 500 ML BOTTLE IVP ONE (20:11)
[2020-05-03] MEDS ORDERED: Etoposide 210 MG in 0.9 % Sodium Chloride Excel Bg 500 ML IV SCH
[2020-05-03] MEDS: Ipratropium/Albuterol Neb 3 ML IH SCH ×6 (00:03→20:31)
[2020-05-03] MEDS: Piperacillin/Tazobactam 3.375 GM in 0.9 % Sodium Chloride Mini Bag 100 ML IVPB SCH ×3 (00:03→18:43)
[2020-05-03] MEDS: MethylPREDNISolone 40 MG/ML VIAL IVP SCH ×3 (00:03→18:43)
[2020-05-03 01:43] LABS: Basophils % 0.2 %; Hematocrit 45.7 % (35.3-44.9); Immature Granulocytes % 1.2 % (0-4); Lymphocytes # 0.6 K/mcL (0.6-4.6); Lymphocytes % 4.1 %; Mean Corpuscular HGB Conc 30.4 g/dL (31.6-35.5); Mean Corpuscular Hemoglobin 25.8 pg (28.0-33.3); Mean Corpuscular Volume 84.8 fL (83.0-100.0); Mean Platelet Volume 11.4 fL (9.4-12.4); Monocytes # 0.8 K/mcL (0.0-1.3); Monocytes % 5.6 %; Neutrophils # 13.2 K/mcL (1.6-8.9); Platelet Count 234 K/mcL (140-400); Red Blood Count 5.39 M/mcL (3.82-4.97); Red Cell Distribution Width 14.7 % (11.5-14.5); Segmented Neutrophils % 88.9 %; White Blood Count 14.8 K/mcL (4.3-11.1)
[2020-05-03 01:44] LABS: Hemoglobin 13.9 g/dL (11.5-15.4)
[2020-05-03 02:03] LABS: BUN/Creatinine Ratio 30 (6-26); Blood Urea Nitrogen 16 mg/dL (8-23); Calcium 9.5 mg/dL (8.6-10.3); Carbon Dioxide 26 mEq/L (23-29); Chloride 101 mEq/L (98-107); Glucose 140 mg/dL (70-105); Osmolality,Calculated 291 (280-300); Potassium 4.1 mEq/L (3.5-5.1); Sodium 139 mEq/L (136-145); eGFR For African Americans > 60 (> 60); eGFR For Non-African Americans > 60 (> 60)
[2020-05-03] MEDS: *HR* Heparin 5,000 UNIT/ML VIAL SQ SCH ×3 (04:42→20:26)
[2020-05-03] MEDS: Ibuprofen 600 MG TABLET PO PRN (04:42)
[2020-05-03] MEDS: Budesonide/Formoterol 80/4.5 1 PUFF INH IH SCH ×2 (07:35→20:31)
[2020-05-03] MEDS: Insulin LISPRO 300 UNITS/3 ML VIAL SQ SCH ×4 (08:40→20:25)
[2020-05-03] MEDS: Nicotine 21 MG PATCH.TD24 TD SCH (08:42)
[2020-05-03] MEDS: polyethylene glycoL 3350 17 GM POWD.PACK PO SCH (08:45)
[2020-05-03] MEDS: Venlafaxine XR (24 HR) 150 MG CAP.ER.24H PO SCH (08:50)
[2020-05-03] MEDS: Losartan/HCTZ 50-12.5 TABLET PO SCH (08:50)
[2020-05-03] MEDS: amLODIPine 5 MG TABLET PO SCH (08:50)
[2020-05-03] MEDS: Gabapentin 300 MG CAPSULE PO SCH ×3 (08:50→20:26)
[2020-05-03] MEDS: Aspirin Enteric Coated 81 MG Tablet PO SCH (08:50)
[2020-05-03] MEDS: Insulin DETEMIR 100 UNIT/ML X5UNITS SQ SCH ×2 (08:56→20:25)
[2020-05-03] MEDS ORDERED: Fosaprepitant Dimeglumine 150 MG in 0.9 % Sodium Chloride 150 ML IVPB SCH (14:30)
[2020-05-03] MEDS ORDERED: *HR* LORazepam 2 MG/ML VIAL IVP PRN (14:30)
[2020-05-03] MEDS ORDERED: 0.9 % Sodium Chloride 500 ML IVC SCH (14:30)
[2020-05-03] MEDS ORDERED: Prochlorperazine 10 MG/2 ML VIAL IVP PRN (14:30)
[2020-05-03] MEDS ORDERED: Dexamethasone 10 MG/ML VIAL IVP SCH (14:30)
[2020-05-03] MEDS ORDERED: SODIUM CHLORIDE IVPB SCH (15:00)
[2020-05-03] MEDS ORDERED: ETOPOSIDE IVPB SCH (15:00)
[2020-05-03] MEDS ORDERED: SODIUM CHLORIDE EXCEL BG IVPB SCH (15:00)
[2020-05-03] MEDS ORDERED: 0.9 % Sodium Chloride 1,000 ML ONE (15:21)
[2020-05-03] MEDS ORDERED: SODIUM CHLORIDE 0.9% IV SCH (16:00)
[2020-05-03] MEDS ORDERED: CARBOPLATIN IV SCH (16:00)
[2020-05-03] MEDS: Azithromycin 250 MG TABLET PO SCH (20:26)
[2020-05-04] MEDS: Ipratropium/Albuterol Neb 3 ML IH SCH ×6 (00:08→19:50)
[2020-05-04] MEDS: MethylPREDNISolone 40 MG/ML VIAL IVP SCH ×2 (00:24→08:31)
[2020-05-04] MEDS: Piperacillin/Tazobactam 3.375 GM in 0.9 % Sodium Chloride Mini Bag 100 ML IVPB SCH ×3 (04:46→21:16)
[2020-05-04] MEDS: *HR* Heparin 5,000 UNIT/ML VIAL SQ SCH ×3 (05:40→21:17)
[2020-05-04] MEDS: Budesonide/Formoterol 80/4.5 1 PUFF INH IH SCH ×2 (07:40→19:51)
[2020-05-04] MEDS: Venlafaxine XR (24 HR) 150 MG CAP.ER.24H PO SCH (08:25)
[2020-05-04] MEDS: amLODIPine 5 MG TABLET PO SCH (08:25)
[2020-05-04] MEDS: Nicotine 21 MG PATCH.TD24 TD SCH (08:25)
[2020-05-04] MEDS: Aspirin Enteric Coated 81 MG Tablet PO SCH (08:25)
[2020-05-04] MEDS: Gabapentin 300 MG CAPSULE PO SCH ×3 (08:25→21:17)
[2020-05-04] MEDS: Losartan/HCTZ 50-12.5 TABLET PO SCH (08:25)
[2020-05-04] MEDS: polyethylene glycoL 3350 17 GM POWD.PACK PO SCH (08:25)
[2020-05-04] MEDS: Insulin DETEMIR 100 UNIT/ML X5UNITS SQ SCH ×2 (08:31→21:17)
[2020-05-04] MEDS: Insulin LISPRO 300 UNITS/3 ML VIAL SQ SCH ×4 (08:32→21:16)
[2020-05-04] MEDS ORDERED: SODIUM CHLORIDE EXCEL BG IVPB SCH (15:00)
[2020-05-04] MEDS ORDERED: ETOPOSIDE IVPB SCH (15:00)
[2020-05-04] MEDS ORDERED: SODIUM CHLORIDE IVPB SCH (15:00)
[2020-05-04] MEDS: Azithromycin 250 MG TABLET PO SCH (18:19)
[2020-05-05] MEDS: Ipratropium/Albuterol Neb 3 ML IH SCH ×7 (00:33→23:55)
[2020-05-05] MEDS: *HR* Heparin 5,000 UNIT/ML VIAL SQ SCH ×3 (04:35→23:22)
[2020-05-05] MEDS: Piperacillin/Tazobactam 3.375 GM in 0.9 % Sodium Chloride Mini Bag 100 ML IVPB SCH ×3 (04:35→23:23)
[2020-05-05 05:06] LABS: Hematocrit 36.2 % (35.3-44.9); Mean Corpuscular HGB Conc 30.4 g/dL (31.6-35.5); Mean Corpuscular Hemoglobin 25.3 pg (28.0-33.3); Mean Corpuscular Volume 83.2 fL (83.0-100.0); Mean Platelet Volume 11.2 fL (9.4-12.4); Platelet Count 225 K/mcL (140-400); Red Blood Count 4.35 M/mcL (3.82-4.97); Red Cell Distribution Width 14.5 % (11.5-14.5); White Blood Count 11.1 K/mcL (4.3-11.1)
[2020-05-05 05:25] LABS: BUN/Creatinine Ratio 32 (6-26); Blood Urea Nitrogen 19 mg/dL (8-23); Calcium 8.5 mg/dL (8.6-10.3); Carbon Dioxide 28 mEq/L (23-29); Chloride 102 mEq/L (98-107); Glucose 268 mg/dL (70-105); Osmolality,Calculated 282 (280-300); Potassium 3.8 mEq/L (3.5-5.1); Sodium 130 mEq/L (136-145); eGFR For African Americans > 60 (> 60); eGFR For Non-African Americans > 60 (> 60)
[2020-05-05] MEDS: Budesonide/Formoterol 80/4.5 1 PUFF INH IH SCH ×2 (07:27→19:42)
[2020-05-05] MEDS: Ondansetron 4 MG/2 ML VIAL IVP PRN (07:45)
[2020-05-05] MEDS: amLODIPine 5 MG TABLET PO SCH (07:49)
[2020-05-05] MEDS: Nicotine 21 MG PATCH.TD24 TD SCH (07:49)
[2020-05-05] MEDS: Losartan/HCTZ 50-12.5 TABLET PO SCH (07:49)
[2020-05-05] MEDS: Aspirin Enteric Coated 81 MG Tablet PO SCH (07:50)
[2020-05-05] MEDS: Venlafaxine XR (24 HR) 150 MG CAP.ER.24H PO SCH (07:50)
[2020-05-05] MEDS: Gabapentin 300 MG CAPSULE PO SCH ×3 (07:50→23:22)
[2020-05-05] MEDS: polyethylene glycoL 3350 17 GM POWD.PACK PO SCH (07:56)
[2020-05-05] MEDS: Insulin DETEMIR 100 UNIT/ML X5UNITS SQ SCH ×2 (08:00→23:31)
[2020-05-05] MEDS: Insulin LISPRO 300 UNITS/3 ML VIAL SQ SCH ×4 (08:01→23:23)
[2020-05-05] MEDS ORDERED: MethylPREDNISolone 40 MG/ML VIAL IVP SCH (09:00)
[2020-05-05] MEDS ORDERED: Prochlorperazine 10 MG/2 ML VIAL IVP PRN (14:00)
[2020-05-05] MEDS ORDERED: SODIUM CHLORIDE EXCEL BG IVPB SCH (14:00)
[2020-05-05] MEDS ORDERED: *HR* LORazepam 2 MG/ML VIAL IVP PRN (14:00)
[2020-05-05] MEDS ORDERED: 0.9 % Sodium Chloride 500 ML IVC SCH (14:00)
[2020-05-05] MEDS ORDERED: ETOPOSIDE IVPB SCH (14:00)
[2020-05-05] MEDS ORDERED: SODIUM CHLORIDE IVPB SCH (14:00)
[2020-05-05] MEDS ORDERED: Saliva Stimulant 100ml BOTTLE PO PRN (17:45)
[2020-05-06] MEDS: Ipratropium/Albuterol Neb 3 ML IH SCH ×3 (03:32→11:05)
[2020-05-06] MEDS: *HR* Heparin 5,000 UNIT/ML VIAL SQ SCH ×2 (05:07→12:21)
[2020-05-06] MEDS: Piperacillin/Tazobactam 3.375 GM in 0.9 % Sodium Chloride Mini Bag 100 ML IVPB SCH ×2 (05:07→12:20)
[2020-05-06] MEDS: Budesonide/Formoterol 80/4.5 1 PUFF INH IH SCH (07:36)
[2020-05-06] MEDS: Losartan/HCTZ 50-12.5 TABLET PO SCH (07:41)
[2020-05-06] MEDS: Aspirin Enteric Coated 81 MG Tablet PO SCH (07:42)
[2020-05-06] MEDS: Gabapentin 300 MG CAPSULE PO SCH (07:43)
[2020-05-06] MEDS: amLODIPine 5 MG TABLET PO SCH (07:43)
[2020-05-06] MEDS: polyethylene glycoL 3350 17 GM POWD.PACK PO SCH (07:45)
[2020-05-06] MEDS: Nicotine 21 MG PATCH.TD24 TD SCH (07:45)
[2020-05-06] MEDS: Venlafaxine XR (24 HR) 150 MG CAP.ER.24H PO SCH (07:47)
[2020-05-06 07:52] VITALS: BP 135/70
[2020-05-06] MEDS: Insulin LISPRO 300 UNITS/3 ML VIAL SQ SCH ×2 (08:27→12:15)
[2020-05-06] MEDS: Insulin DETEMIR 100 UNIT/ML X5UNITS SQ SCH (08:30)
[2020-05-06] MEDS ORDERED: predniSONE 20 MG TABLET PO SCH (09:00)
[2020-05-06] MEDS: Ondansetron 4 MG/2 ML VIAL IVP PRN (09:06)
[2020-05-06] MEDS ORDERED: Fluconazole 100 MG TABLET PO ONE (09:30)
[2020-05-06] MEDS ORDERED: FLU Vac QV 20-21 (6Month+)/PF 0.5 ML SYRINGE IM ONE (15:06)
== END 2020-05-06 16:37 | disposition home health service (06) | DRG 871 ==
LOC: 3BNU 13:01 → EMEROOARM 13:01 → 2ANU 18:24 → SUATTDRO 20:40 → 3ANU 05-03 13:44
PROVIDERS: ADMIT Student in an Organized Health Care Education/Training Program; ATTEND Internal Medicine

== ENCOUNTER 2020-09-21 18:32 | Inpatient (IN) ==
[2020-09-21] MEDS ORDERED: Melatonin 3 MG TABLET PO PRN (22:20)
[2020-09-21] MEDS ORDERED: Naloxone 0.4 MG/ML INJ IVP PRN (22:20)
[2020-09-21] MEDS ORDERED: Ondansetron 4 MG/2 ML VIAL IVP PRN (22:20)
[2020-09-21] MEDS ORDERED: *HR* Dextrose 50 % in Water (Vial) 50 ML VIAL IVP PRN (22:27)
[2020-09-21] MEDS ORDERED: Dextrose Gel 15 GM/37.5 ML TUBE PO PRN ×2 (22:27)
[2020-09-21] MEDS ORDERED: D5% in Water 1,000 ML IVC PRN (22:27)
[2020-09-21] MEDS ORDERED: Ipratropium/Albuterol Neb 3 ML IH PRN (22:28)
[2020-09-21] MEDS: Azithromycin 500 MG in 0.9 % Sodium Chloride 250 ML IVPB SCH (22:40)
[2020-09-21] MEDS: Ipratropium/Albuterol Neb 3 ML IH SCH ×2 (23:37→23:46)
[2020-09-22 01:08] LABS: Basophils % 0.1 %; Eosinophils # 0.1 K/mcL (0.0-0.6); Eosinophils % 0.5 %; Hematocrit 37.2 % (35.3-44.9); Hemoglobin 11.6 g/dL (11.5-15.4); Immature Granulocytes % 0.9 % (0-4); Lymphocytes # 0.7 K/mcL (0.6-4.6); Lymphocytes % 4.4 %; Mean Corpuscular HGB Conc 31.2 g/dL (31.6-35.5); Mean Corpuscular Hemoglobin 26.5 pg (28.0-33.3); Mean Corpuscular Volume 84.9 fL (83.0-100.0); Mean Platelet Volume 9.8 fL (9.4-12.4); Monocytes # 1.2 K/mcL (0.0-1.3); Monocytes % 7.4 %; Neutrophils # 14.3 K/mcL (1.6-8.9); Platelet Count 226 K/mcL (140-400); Red Blood Count 4.38 M/mcL (3.82-4.97); Red Cell Distribution Width 14.1 % (11.5-14.5); Segmented Neutrophils % 86.7 %; White Blood Count 16.5 K/mcL (4.3-11.1)
[2020-09-22 01:16] LABS: INR 1.2
[2020-09-22 01:30] LABS: BUN/Creatinine Ratio 24 (6-26); Blood Urea Nitrogen 17 mg/dL (8-23); Calcium 8.8 mg/dL (8.6-10.3); Carbon Dioxide 24 mEq/L (23-29); Chloride 100 mEq/L (98-107); Glucose 197 mg/dL (70-105); Osmolality,Calculated 283 (280-300); Potassium 3.1 mEq/L (3.5-5.1); Sodium 133 mEq/L (136-145); eGFR For African Americans > 60 (> 60); eGFR For Non-African Americans > 60 (> 60)
[2020-09-22] MEDS: Ipratropium/Albuterol Neb 3 ML IH SCH ×6 (04:12→23:38)
[2020-09-22] MEDS: Aspirin Enteric Coated 81 MG Tablet PO SCH (08:43)
[2020-09-22] MEDS: Insulin LISPRO 300 UNITS/3 ML VIAL SUBQ SCH ×3 (08:44→17:09)
[2020-09-22] MEDS: cefTRIAXone 1,000 MG in Water for inj. (sterile) 10 ML IVP SCH (08:44)
[2020-09-22] MEDS ORDERED: Potassium Chloride Elixir 20 MEQ/15 ML UDC PO ONE (09:24)
[2020-09-22 11:04] LABS: Adenovirus Not Detected (Not Detect); Bordetella Pertussis Not Detected (Not Detect); Chlamydophila pneumoniae Not Detected (Not Detect); Coronavirus 229E Not Detected (Not Detect); Coronavirus HKU1 Not Detected (Not Detect); Coronavirus NL63 Not Detected (Not Detect); Coronavirus OC43 Not Detected (Not Detect); Human Metapneumovirus Not Detected (Not Detect); Human Rhinovirus/Enterovirus Not Detected (Not Detect); Influenza A Subtype 2009 H1 Not Detected (Not Detect); Influenza B Not Detected (Not Detect); Mycoplasma pneumoniae Not Detected (Not Detect); Parainfluenza Virus 1 Not Detected (Not Detect); Parainfluenza Virus 2 Not Detected (Not Detect); Parainfluenza Virus 3 Not Detected (Not Detect); Parainfluenza Virus 4 Not Detected (Not Detect); Respiratory Syncytial Virus Not Detected (Not Detect); SARS-CoV-2 Not Detected (Not Detect)
[2020-09-22] MEDS ORDERED: Albuterol 2.5 MG/3 ML NEBULIZER IH PRN (13:22)
[2020-09-22] MEDS ORDERED: Ondansetron ODT 4 MG TAB.RAPDIS PO PRN (13:32)
[2020-09-22] MEDS ORDERED: dexAMETHasone 4 MG TABLET PO SCH (14:45)
[2020-09-22] MEDS: *HR* Heparin 5,000 UNIT/ML VIAL SQ SCH ×2 (15:04→22:18)
[2020-09-22] MEDS ORDERED: Isovue-370 500 ML BOTTLE IVP ONE (16:35)
[2020-09-22] MEDS: Budesonide/Formoterol 80/4.5 1 PUFF INH IH SCH (20:47)
[2020-09-22] MEDS ORDERED: Insulin LISPRO 300 UNITS/3 ML VIAL SUBQ SCH (21:00)
[2020-09-22] MEDS ORDERED: Insulin DETEMIR 100 UNIT/ML X5UNITS SUBQ SCH (21:00)
[2020-09-22] MEDS: Azithromycin 500 MG in 0.9 % Sodium Chloride 250 ML IVPB SCH (22:17)
[2020-09-22] MEDS: Nystatin POWDER 30 GM BOTTLE TP SCH (22:17)
[2020-09-23] MEDS: dexAMETHasone 4 MG TABLET PO SCH ×4 (00:39→23:11)
[2020-09-23] MEDS: Ipratropium/Albuterol Neb 3 ML IH SCH ×5 (04:13→20:08)
[2020-09-23] MEDS: *HR* Heparin 5,000 UNIT/ML VIAL SQ SCH ×3 (05:44→20:59)
[2020-09-23 07:26] LABS: Basophils % 0.2 %; Hematocrit 32.8 % (35.3-44.9); Hemoglobin 10.5 g/dL (11.5-15.4); Immature Granulocytes % 1.2 % (0-4); Lymphocytes # 0.3 K/mcL (0.6-4.6); Lymphocytes % 2.6 %; Mean Corpuscular Hemoglobin 26.9 pg (28.0-33.3); Mean Corpuscular Volume 84.1 fL (83.0-100.0); Mean Platelet Volume 10.1 fL (9.4-12.4); Monocytes # 0.4 K/mcL (0.0-1.3); Monocytes % 2.8 %; Neutrophils # 11.7 K/mcL (1.6-8.9); Platelet Count 208 K/mcL (140-400); Red Cell Distribution Width 14.3 % (11.5-14.5); Segmented Neutrophils % 93.2 %; White Blood Count 12.6 K/mcL (4.3-11.1)
[2020-09-23 07:37] LABS: Alanine Aminotransferase 5 Units/L (7-52); Albumin 3.4 g/dL (3.5-5.7); Alkaline Phosphatase 59 Units/L (34-104); Aspartate Amino Transferase 5 Units/L (13-39); BUN/Creatinine Ratio 25 (6-26); Bilirubin,Total 0.3 mg/dL (0.3-1.0); Blood Urea Nitrogen 14 mg/dL (8-23); Calcium 8.6 mg/dL (8.6-10.3); Carbon Dioxide 22 mEq/L (23-29); Chloride 98 mEq/L (98-107); Globulin 3.4 g/dL (2.4-3.5); Glucose 368 mg/dL (70-105); Osmolality,Calculated 285 (280-300); Potassium 3.6 mEq/L (3.5-5.1); Sodium 130 mEq/L (136-145); Total Protein 6.8 g/dL (6.4-8.9); eGFR For African Americans > 60 (> 60); eGFR For Non-African Americans > 60 (> 60)
[2020-09-23] MEDS: Budesonide/Formoterol 80/4.5 1 PUFF INH IH SCH ×2 (08:15→20:08)
[2020-09-23] MEDS: cefTRIAXone 1,000 MG in Water for inj. (sterile) 10 ML IVP SCH (09:03)
[2020-09-23] MEDS: Losartan/HCTZ 50-12.5 TABLET PO SCH (09:04)
[2020-09-23] MEDS: amLODIPine 5 MG TABLET PO SCH (09:05)
[2020-09-23] MEDS: Venlafaxine XR (24 HR) 150 MG CAP.ER.24H PO SCH (09:05)
[2020-09-23] MEDS: Aspirin Enteric Coated 81 MG Tablet PO SCH (09:06)
[2020-09-23] MEDS: Acetaminophen 325 MG TABLET PO PRN (09:06)
[2020-09-23] MEDS: Loratadine 10 MG TABLET PO SCH (09:06)
[2020-09-23] MEDS: Insulin LISPRO 300 UNITS/3 ML VIAL SUBQ SCH ×4 (09:07→20:57)
[2020-09-23] MEDS: Nystatin POWDER 30 GM BOTTLE TP SCH ×3 (09:08→20:56)
[2020-09-23] MEDS: Insulin DETEMIR 100 UNIT/ML X5UNITS SUBQ SCH ×2 (09:13→20:55)
[2020-09-23] MEDS ORDERED: clonazePAM 1 MG TABLET PO PRN (11:29)
[2020-09-23] MEDS: DEXTROAMPHETAMINE PO SCH ×2 (12:00→20:59)
[2020-09-23] MEDS: AMPHETAMINE PO SCH ×2 (12:00→20:59)
[2020-09-23] MEDS ORDERED: Nicotine 14 MG PATCH.TD24 TD PRN (15:11)
[2020-09-23] MEDS ORDERED: Insulin Human Regular 10 UNIT in 0.9 % Sodium Chloride 10 ML IV ONE (17:15)
[2020-09-23] MEDS: Azithromycin 500 MG in 0.9 % Sodium Chloride 250 ML IVPB SCH (23:11)
[2020-09-24] MEDS: Ipratropium/Albuterol Neb 3 ML IH SCH ×7 (00:10→23:09)
[2020-09-24] MEDS: *HR* Heparin 5,000 UNIT/ML VIAL SQ SCH ×3 (05:33→21:48)
[2020-09-24 06:34] LABS: Basophils % 0.1 %; Hematocrit 32.6 % (35.3-44.9); Hemoglobin 10.4 g/dL (11.5-15.4); Immature Granulocytes % 2.2 % (0-4); Lymphocytes # 0.6 K/mcL (0.6-4.6); Lymphocytes % 5.3 %; Mean Corpuscular HGB Conc 31.9 g/dL (31.6-35.5); Mean Corpuscular Hemoglobin 26.6 pg (28.0-33.3); Mean Corpuscular Volume 83.4 fL (83.0-100.0); Mean Platelet Volume 10.9 fL (9.4-12.4); Monocytes # 0.5 K/mcL (0.0-1.3); Monocytes % 4.1 %; Neutrophils # 10.6 K/mcL (1.6-8.9); Nucleated Red Blood Cells 0.2 /100 WBC (0); Platelet Count 215 K/mcL (140-400); Red Blood Count 3.91 M/mcL (3.82-4.97); Segmented Neutrophils % 88.3 %
[2020-09-24 06:46] LABS: BUN/Creatinine Ratio 41 (6-26); Blood Urea Nitrogen 23 mg/dL (8-23); Calcium 9.1 mg/dL (8.6-10.3); Carbon Dioxide 23 mEq/L (23-29); Chloride 96 mEq/L (98-107); Glucose 401 mg/dL (70-105); Osmolality,Calculated 286 (280-300); Potassium 3.9 mEq/L (3.5-5.1); Sodium 128 mEq/L (136-145); eGFR For African Americans > 60 (> 60); eGFR For Non-African Americans > 60 (> 60)
[2020-09-24] MEDS: Budesonide/Formoterol 80/4.5 1 PUFF INH IH SCH ×2 (07:30→19:51)
[2020-09-24] MEDS: Insulin LISPRO 300 UNITS/3 ML VIAL SUBQ SCH ×7 (09:27→21:46)
[2020-09-24] MEDS: Insulin DETEMIR 100 UNIT/ML X5UNITS SUBQ SCH ×2 (09:28→21:45)
[2020-09-24] MEDS: Venlafaxine XR (24 HR) 150 MG CAP.ER.24H PO SCH (09:29)
[2020-09-24] MEDS: cefTRIAXone 1,000 MG in Water for inj. (sterile) 10 ML IVP SCH (09:29)
[2020-09-24] MEDS: dexAMETHasone 4 MG TABLET PO SCH ×2 (09:29→21:45)
[2020-09-24] MEDS: Aspirin Enteric Coated 81 MG Tablet PO SCH (09:29)
[2020-09-24] MEDS: Loratadine 10 MG TABLET PO SCH (09:30)
[2020-09-24] MEDS: amLODIPine 5 MG TABLET PO SCH (09:30)
[2020-09-24] MEDS: Nystatin POWDER 30 GM BOTTLE TP SCH ×3 (09:30→21:47)
[2020-09-24] MEDS: Losartan/HCTZ 50-12.5 TABLET PO SCH (09:30)
[2020-09-24] MEDS: AMPHETAMINE PO SCH ×2 (09:31→21:48)
[2020-09-24] MEDS: DEXTROAMPHETAMINE PO SCH ×2 (09:31→21:48)
[2020-09-24] MEDS ORDERED: Insulin Human Regular 15 UNIT in 0.9 % Sodium Chloride 10 ML IV ONE (12:00)
[2020-09-24] MEDS: Acetaminophen 325 MG TABLET PO PRN (16:28)
[2020-09-24] MEDS: Azithromycin 500 MG in 0.9 % Sodium Chloride 250 ML IVPB SCH (22:14)
[2020-09-25] MEDS: Ipratropium/Albuterol Neb 3 ML IH SCH ×6 (04:06→23:27)
[2020-09-25] MEDS: *HR* Heparin 5,000 UNIT/ML VIAL SQ SCH ×3 (05:57→20:36)
[2020-09-25 06:17] LABS: Basophils # 0.1 K/mcL (0.0-0.2); Basophils % 0.5 %; Hematocrit 33.7 % (35.3-44.9); Hemoglobin 10.7 g/dL (11.5-15.4); Immature Granulocytes % 3.8 % (0-4); Lymphocytes # 0.7 K/mcL (0.6-4.6); Lymphocytes % 6.8 %; Mean Corpuscular HGB Conc 31.8 g/dL (31.6-35.5); Mean Corpuscular Hemoglobin 26.8 pg (28.0-33.3); Mean Corpuscular Volume 84.3 fL (83.0-100.0); Mean Platelet Volume 10.4 fL (9.4-12.4); Monocytes # 0.7 K/mcL (0.0-1.3); Platelet Count 231 K/mcL (140-400); Red Cell Distribution Width 13.9 % (11.5-14.5); Segmented Neutrophils % 81.9 %; White Blood Count 9.8 K/mcL (4.3-11.1)
[2020-09-25 07:01] LABS: BUN/Creatinine Ratio 44 (6-26); Blood Urea Nitrogen 25 mg/dL (8-23); Calcium 9.2 mg/dL (8.6-10.3); Carbon Dioxide 24 mEq/L (23-29); Chloride 94 mEq/L (98-107); Glucose 323 mg/dL (70-105); Osmolality,Calculated 283 (280-300); Potassium 3.9 mEq/L (3.5-5.1); Sodium 128 mEq/L (136-145); eGFR For African Americans > 60 (> 60); eGFR For Non-African Americans > 60 (> 60)
[2020-09-25] MEDS: Budesonide/Formoterol 80/4.5 1 PUFF INH IH SCH ×2 (07:26→19:57)
[2020-09-25] MEDS: cefTRIAXone 1,000 MG in Water for inj. (sterile) 10 ML IVP SCH (09:40)
[2020-09-25] MEDS: Losartan/HCTZ 50-12.5 TABLET PO SCH (09:41)
[2020-09-25] MEDS: Aspirin Enteric Coated 81 MG Tablet PO SCH (09:41)
[2020-09-25] MEDS: dexAMETHasone 4 MG TABLET PO SCH ×2 (09:41→20:36)
[2020-09-25] MEDS: Venlafaxine XR (24 HR) 150 MG CAP.ER.24H PO SCH (09:41)
[2020-09-25] MEDS: Insulin DETEMIR 100 UNIT/ML X5UNITS SUBQ SCH ×2 (09:41→20:37)
[2020-09-25] MEDS: AMPHETAMINE PO SCH (09:42)
[2020-09-25] MEDS: DEXTROAMPHETAMINE PO SCH (09:42)
[2020-09-25] MEDS: Nystatin POWDER 30 GM BOTTLE TP SCH ×3 (09:42→20:37)
[2020-09-25] MEDS: amLODIPine 5 MG TABLET PO SCH (09:42)
[2020-09-25] MEDS: Loratadine 10 MG TABLET PO SCH (09:42)
[2020-09-25] MEDS: Insulin LISPRO 300 UNITS/3 ML VIAL SUBQ SCH ×7 (09:44→20:37)
[2020-09-26] MEDS: Azithromycin 500 MG in 0.9 % Sodium Chloride 250 ML IVPB SCH (00:19)
[2020-09-26] MEDS: Ipratropium/Albuterol Neb 3 ML IH SCH ×4 (03:55→15:27)
[2020-09-26] MEDS: *HR* Heparin 5,000 UNIT/ML VIAL SQ SCH (04:34)
[2020-09-26 06:54] LABS: BUN/Creatinine Ratio 41 (6-26); Blood Urea Nitrogen 26 mg/dL (8-23); Calcium 9.2 mg/dL (8.6-10.3); Carbon Dioxide 23 mEq/L (23-29); Chloride 90 mEq/L (98-107); Glucose 339 mg/dL (70-105); Osmolality,Calculated 276 (280-300); Potassium 4.6 mEq/L (3.5-5.1); Sodium 124 mEq/L (136-145); eGFR For African Americans > 60 (> 60); eGFR For Non-African Americans > 60 (> 60)
[2020-09-26] MEDS: Budesonide/Formoterol 80/4.5 1 PUFF INH IH SCH (07:32)
[2020-09-26] MEDS: Insulin LISPRO 300 UNITS/3 ML VIAL SUBQ SCH ×4 (08:09→12:30)
[2020-09-26] MEDS: Venlafaxine XR (24 HR) 150 MG CAP.ER.24H PO SCH (08:10)
[2020-09-26] MEDS: Loratadine 10 MG TABLET PO SCH (08:10)
[2020-09-26] MEDS: Aspirin Enteric Coated 81 MG Tablet PO SCH (08:10)
[2020-09-26] MEDS: dexAMETHasone 4 MG TABLET PO SCH (08:10)
[2020-09-26] MEDS: amLODIPine 5 MG TABLET PO SCH (08:10)
[2020-09-26] MEDS: Insulin DETEMIR 100 UNIT/ML X5UNITS SUBQ SCH (08:11)
[2020-09-26] MEDS: Nystatin POWDER 30 GM BOTTLE TP SCH (08:11)
[2020-09-26] MEDS: cefTRIAXone 1,000 MG in Water for inj. (sterile) 10 ML IVP SCH (08:12)
[2020-09-26] MEDS ORDERED: Cefdinir 300 MG CAPSULE PO SCH (13:30)
[2020-09-26] MEDS ORDERED: 0.9 % Sodium Chloride 1,000 ML IVC SCH (13:30)
[2020-09-26 15:27] VITALS: BP 150/93
== END 2020-09-26 16:12 | disposition home health service (06) | DRG 194 ==
LOC: 3ANU → SUATTDRO 21:30
PROVIDERS: ADMIT Internal Medicine; ATTEND Internal Medicine

== ENCOUNTER 2020-10-27 15:32 | Inpatient (IN) ==
[2020-10-27] MEDS ORDERED: *HR* Dextrose 50 % in Water (Vial) 50 ML VIAL IVP ONE ×2 (15:33→15:35)
[2020-10-27 15:52] LABS: ABG Base Excess 2 mEq/L (-2 to 3); ABG HCO3 29 mEq/L (21-27); ABG Oxygen Saturation 100 % (95-98); ABG PCO2 56 mmHg (35-45); ABG PH 7.32 pH Units (7.32-7.45); ABG PO2 297 mmHg (85-104); ABG TCO2 30 mEq/L (20-26)
[2020-10-27] MEDS ORDERED: Ondansetron 4 MG/2 ML VIAL IVP ONE (15:52)
[2020-10-27] MEDS ORDERED: Furosemide 40 MG/4 ML VIAL IVP ONE (15:53)
[2020-10-27 16:16] LABS: Basophils % 0.2 %; Eosinophils # 0.1 K/mcL (0.0-0.6); Eosinophils % 1.2 %; Hematocrit 33.5 % (35.3-44.9); Hemoglobin 10.2 g/dL (11.5-15.4); Immature Granulocytes % 0.4 % (0-4); Lymphocytes # 0.6 K/mcL (0.6-4.6); Lymphocytes % 10.8 %; Mean Corpuscular HGB Conc 30.4 g/dL (31.6-35.5); Mean Corpuscular Hemoglobin 26.3 pg (28.0-33.3); Mean Corpuscular Volume 86.3 fL (83.0-100.0); Mean Platelet Volume 9.9 fL (9.4-12.4); Monocytes # 0.6 K/mcL (0.0-1.3); Monocytes % 11.1 %; Neutrophils # 4.3 K/mcL (1.6-8.9); Platelet Count 180 K/mcL (140-400); Red Blood Count 3.88 M/mcL (3.82-4.97); Red Cell Distribution Width 15.7 % (11.5-14.5); Segmented Neutrophils % 76.3 %; White Blood Count 5.7 K/mcL (4.3-11.1)
[2020-10-27] MEDS ORDERED: Furosemide 40 MG/4 ML VIAL ONE (16:19)
[2020-10-27] MEDS ORDERED: Ondansetron 4 MG/2 ML VIAL ONE (16:19)
[2020-10-27 16:32] LABS: INR 1.1; Prothrombin Time 12.5 Seconds (9.4-12.1)
[2020-10-27 16:34] LABS: Activated Partial Thrombo Time 26.7 Seconds (26.0-36.0)
[2020-10-27 16:36] LABS: Alanine Aminotransferase 9 Units/L (7-52); Albumin 3.4 g/dL (3.5-5.7); Albumin/Globulin Ratio 1.1 (1.1-2.2); Alkaline Phosphatase 44 Units/L (34-104); Aspartate Amino Transferase 10 Units/L (13-39); BUN/Creatinine Ratio 13 (6-26); Bilirubin,Indirect 0.2 mg/dL (0.0-1.0); Bilirubin,Total 0.2 mg/dL (0.3-1.0); Blood Urea Nitrogen 7 mg/dL (8-23); Calcium 8.8 mg/dL (8.6-10.3); Carbon Dioxide 25 mEq/L (23-29); Chloride 104 mEq/L (98-107); Ethanol < 10 mg/dL (Less than 10); Glucose 356 mg/dL (70-105); Osmolality,Calculated 294 (280-300); Potassium 3.4 mEq/L (3.5-5.1); Sodium 136 mEq/L (136-145); Total Protein 6.4 g/dL (6.4-8.9); eGFR For African Americans > 60 (> 60); eGFR For Non-African Americans > 60 (> 60)
[2020-10-27 16:37] LABS: Troponin I < 0.03 ng/mL (< 0.04)
[2020-10-27 16:50] LABS: Thyroid Stimulating Hormone 0.474 mcIU/mL (0.340-5.600)
[2020-10-27 17:08] LABS: Bilirubin,Urine Negative (Negative); Blood,Urine Negative (Negative); Clarity,Urine Clear (Clear); Color,Urine Colorless (Yellow); Glucose,Urine (UA) 150 mg/dL (Normal); Ketones,Urine Negative (Negative); Leukocyte Esterase,Urine Negative (Negative); Nitrite,Urine Negative (Negative); PH,Urine 7.5 pH Units (5.0-8.0); Protein,Urine Negative (Neg-Trace); RBC,Urine 0-3 per hpf (0-3); Specific Gravity,Urine 1.008 (1.010-1.025); Urobilinogen,Urine Normal (Normal); WBC,Urine 0-3 per hpf (0-3)
[2020-10-27 17:09] LABS: Amphetamine Screen,Urine Negative ng/mL (Cutoff=1000); Barbiturate Screen,Urine Negative ng/mL (Cutoff=200); Benzodiazepines Screen,Urine Negative ng/mL (Cutoff=200); Cannabinoid Screen,Urine Negative ng/mL (Cutoff = 50); Cocaine Screen,Urine Negative ng/mL (Cutoff= 300); Opiate Screen,Urine Negative ng/mL (Cutoff=300); Phencyclidine Screen,Urine Negative ng/mL (Cutoff=25)
[2020-10-27] MEDS ORDERED: Naloxone 0.4 MG/ML INJ IVP PRN (18:15)
[2020-10-27] MEDS ORDERED: Ondansetron 4 MG/2 ML VIAL IVP PRN (18:15)
[2020-10-27] MEDS ORDERED: Perflutren Lipid Microsphere 1.3 ML in 0.9 % Sodium Chloride 8.7 ML IVP PRN (18:30)
[2020-10-27] MEDS ORDERED: *HR* Dextrose 50 % in Water (Vial) 50 ML VIAL IVP PRN (18:43)
[2020-10-27] MEDS ORDERED: D5% in Water 1,000 ML IVC PRN (18:43)
[2020-10-27] MEDS ORDERED: Dextrose Gel 15 GM/37.5 ML TUBE PO PRN ×2 (18:43)
[2020-10-27 21:37] LABS: Adenovirus Not Detected (Not Detect); Bordetella Pertussis Not Detected (Not Detect); Chlamydophila pneumoniae Not Detected (Not Detect); Coronavirus 229E Not Detected (Not Detect); Coronavirus HKU1 Not Detected (Not Detect); Coronavirus NL63 Not Detected (Not Detect); Coronavirus OC43 Not Detected (Not Detect); Human Metapneumovirus Not Detected (Not Detect); Human Rhinovirus/Enterovirus Not Detected (Not Detect); Influenza A Subtype 2009 H1 Not Detected (Not Detect); Influenza B Not Detected (Not Detect); Mycoplasma pneumoniae Not Detected (Not Detect); Parainfluenza Virus 1 Not Detected (Not Detect); Parainfluenza Virus 2 Not Detected (Not Detect); Parainfluenza Virus 3 Not Detected (Not Detect); Parainfluenza Virus 4 Not Detected (Not Detect); Respiratory Syncytial Virus Not Detected (Not Detect); SARS-CoV-2 Not Detected (Not Detect)
[2020-10-27 22:07] LABS: Estimated Average Glucose 206 mg/dl; Hemoglobin A1C 8.8 %
[2020-10-27 22:10] LABS: Magnesium 1.9 mg/dL (1.6-2.6)
[2020-10-27] MEDS: Ipratropium/Albuterol Neb 3 ML IH SCH (22:18)
[2020-10-28] MEDS: Insulin LISPRO 300 UNITS/3 ML VIAL SUBQ SCH ×4 (00:31→17:59)
[2020-10-28] MEDS: Piperacillin/Tazobactam 3.375 GM in 0.9 % Sodium Chloride Mini Bag 100 ML IVPB SCH ×3 (00:34→16:47)
[2020-10-28] MEDS: MethylPREDNISolone 40 MG/ML VIAL IVP SCH ×3 (00:35→17:58)
[2020-10-28] MEDS: Ipratropium/Albuterol Neb 3 ML IH SCH ×4 (03:49→22:38)
[2020-10-28 04:11] LABS: Basophils % 0.2 %; Eosinophils % 0.3 %; Hematocrit 35.7 % (35.3-44.9); Hemoglobin 10.8 g/dL (11.5-15.4); Immature Granulocytes % 0.3 % (0-4); Lymphocytes # 0.3 K/mcL (0.6-4.6); Lymphocytes % 4.9 %; Mean Corpuscular HGB Conc 30.3 g/dL (31.6-35.5); Mean Corpuscular Hemoglobin 25.9 pg (28.0-33.3); Mean Corpuscular Volume 85.6 fL (83.0-100.0); Mean Platelet Volume 9.8 fL (9.4-12.4); Monocytes # 0.2 K/mcL (0.0-1.3); Monocytes % 2.9 %; Neutrophils # 5.4 K/mcL (1.6-8.9); Platelet Count 197 K/mcL (140-400); Red Blood Count 4.17 M/mcL (3.82-4.97); Red Cell Distribution Width 15.7 % (11.5-14.5); Segmented Neutrophils % 91.4 %; White Blood Count 5.9 K/mcL (4.3-11.1)
[2020-10-28 04:29] LABS: BUN/Creatinine Ratio 14 (6-26); Blood Urea Nitrogen 8 mg/dL (8-23); Calcium 9.2 mg/dL (8.6-10.3); Carbon Dioxide 29 mEq/L (23-29); Chloride 104 mEq/L (98-107); Glucose 120 mg/dL (70-105); Osmolality,Calculated 292 (280-300); Potassium 3.9 mEq/L (3.5-5.1); Sodium 141 mEq/L (136-145); eGFR For African Americans > 60 (> 60); eGFR For Non-African Americans > 60 (> 60)
[2020-10-28] MEDS: *HR* Heparin 5,000 UNIT/ML VIAL SQ SCH ×2 (05:29→17:58)
[2020-10-28] MEDS ORDERED: Furosemide 40 MG/4 ML VIAL IVP SCH (09:00)
[2020-10-28] MEDS ORDERED: Pantoprazole 40 MG VIAL IVP SCH (09:00)
[2020-10-28] MEDS ORDERED: *HR* OxyCODONE/APAP 5/325 TABLET PO PRN (14:12)
[2020-10-28] MEDS: clonazePAM 1 MG TABLET PO PRN (21:16)
[2020-10-28] MEDS: DEXTROAMPHETAMINE PO SCH (21:17)
[2020-10-28] MEDS: AMPHETAMINE PO SCH (21:17)
[2020-10-28] MEDS: Insulin NPH/REG 70/30 100 UNIT/ML (x5UNIT) SUBQ SCH (21:17)
[2020-10-28] MEDS: Budesonide/Formoterol 80/4.5 1 PUFF INH IH SCH (22:41)
[2020-10-29] MEDS: Piperacillin/Tazobactam 3.375 GM in 0.9 % Sodium Chloride Mini Bag 100 ML IVPB SCH ×4 (01:23→23:57)
[2020-10-29] MEDS: Insulin LISPRO 300 UNITS/3 ML VIAL SUBQ SCH ×4 (01:28→17:30)
[2020-10-29] MEDS: Ipratropium/Albuterol Neb 3 ML IH SCH ×4 (04:08→22:45)
[2020-10-29 04:16] LABS: Basophils % 0.1 %; Hematocrit 32.8 % (35.3-44.9); Hemoglobin 10.1 g/dL (11.5-15.4); Immature Granulocytes % 0.5 % (0-4); Lymphocytes # 0.5 K/mcL (0.6-4.6); Lymphocytes % 6.3 %; Mean Corpuscular HGB Conc 30.8 g/dL (31.6-35.5); Mean Corpuscular Volume 84.5 fL (83.0-100.0); Mean Platelet Volume 9.6 fL (9.4-12.4); Monocytes # 0.7 K/mcL (0.0-1.3); Monocytes % 9.1 %; Neutrophils # 6.2 K/mcL (1.6-8.9); Platelet Count 216 K/mcL (140-400); Red Blood Count 3.88 M/mcL (3.82-4.97); Red Cell Distribution Width 15.3 % (11.5-14.5); White Blood Count 7.4 K/mcL (4.3-11.1)
[2020-10-29 04:35] LABS: BUN/Creatinine Ratio 27 (6-26); Blood Urea Nitrogen 17 mg/dL (8-23); Carbon Dioxide 28 mEq/L (23-29); Chloride 102 mEq/L (98-107); Glucose 159 mg/dL (70-105); Magnesium 2.1 mg/dL (1.6-2.6); Osmolality,Calculated 289 (280-300); Potassium 3.7 mEq/L (3.5-5.1); Sodium 137 mEq/L (136-145); eGFR For African Americans > 60 (> 60); eGFR For Non-African Americans > 60 (> 60)
[2020-10-29] MEDS: *HR* Heparin 5,000 UNIT/ML VIAL SQ SCH ×2 (06:46→17:27)
[2020-10-29] MEDS: MethylPREDNISolone 40 MG/ML VIAL IVP SCH ×2 (06:47→17:27)
[2020-10-29] MEDS ORDERED: Gadolinium Contrast Agent (WT Based) IV PRN (07:26)
[2020-10-29] MEDS: Insulin NPH/REG 70/30 100 UNIT/ML (x5UNIT) SUBQ SCH ×2 (07:28→21:35)
[2020-10-29] MEDS: Vancomycin 1,250 MG/262.5 ML IV.SOLN IVPB SCH ×2 (07:28→19:24)
[2020-10-29] MEDS: Loratadine 10 MG TABLET PO SCH (07:28)
[2020-10-29] MEDS: amLODIPine 5 MG TABLET PO SCH (07:29)
[2020-10-29] MEDS: Aspirin Enteric Coated 81 MG Tablet PO SCH (07:29)
[2020-10-29] MEDS: Venlafaxine XR (24 HR) 150 MG CAP.ER.24H PO SCH (07:29)
[2020-10-29] MEDS: Fluticasone Propionate Nasal 50 MCG/SPRAY BOTTLE NS SCH (07:29)
[2020-10-29] MEDS: AMPHETAMINE PO SCH ×2 (07:29→21:03)
[2020-10-29] MEDS: DEXTROAMPHETAMINE PO SCH ×2 (07:29→21:03)
[2020-10-29 07:51] LABS: Acinetobacter baumannii by PCR Not Detected (Not Detect); Enterobacter cloacae Cmplx PCR Not Detected (Not Detect); Enterobacteriaceae by PCR Not Detected (Not Detect); Enterococcus by PCR Not Detected (Not Detect); Escherichia coli by PCR Not Detected (Not Detect); Klebsiella oxytoca by PCR Not Detected (Not Detect); Staphylococcus aureus by PCR Not Detected (Not Detect); Staphylococcus by PCR DETECTED (Not Detect); Streptococcus agalactiae(B)PCR Not Detected (Not Detect); Streptococcus by PCR Not Detected (Not Detect); Streptococcus pneumoniae PCR Not Detected (Not Detect); Streptococcus pyogenes (A) PCR Not Detected (Not Detect); mecA Methicillin-Resist Gene DETECTED (Not Detect)
[2020-10-29 07:52] LABS: Candida albicans by PCR Not Detected (Not Detect); Candida glabrata by PCR Not Detected (Not Detect); Candida krusei by PCR Not Detected (Not Detect); Candida parapsilosis by PCR Not Detected (Not Detect); Candida tropicalis by PCR Not Detected (Not Detect); Klebsiella pneumoniae by PCR Not Detected (Not Detect); Proteus by PCR Not Detected (Not Detect); Pseudomonas aeruginosa by PCR Not Detected (Not Detect); Serratia marcescens by PCR Not Detected (Not Detect)
[2020-10-29] MEDS ORDERED: Isovue-370 500 ML BOTTLE IVP ONE ×2 (08:48→10:08)
[2020-10-29] MEDS ORDERED: Furosemide 40 MG TABLET PO SCH (09:00)
[2020-10-29] MEDS: Budesonide/Formoterol 80/4.5 1 PUFF INH IH SCH ×2 (10:17→22:46)
[2020-10-30] MEDS: Insulin LISPRO 300 UNITS/3 ML VIAL SUBQ SCH ×4 (00:57→17:01)
[2020-10-30] MEDS: Ipratropium/Albuterol Neb 3 ML IH SCH ×4 (04:12→22:56)
[2020-10-30 06:40] LABS: Basophils % 0.1 %; Eosinophils % 0.1 %; Hematocrit 33.4 % (35.3-44.9); Hemoglobin 10.4 g/dL (11.5-15.4); Immature Granulocytes % 0.5 % (0-4); Lymphocytes # 0.8 K/mcL (0.6-4.6); Lymphocytes % 9.8 %; Mean Corpuscular HGB Conc 31.1 g/dL (31.6-35.5); Mean Corpuscular Hemoglobin 26.3 pg (28.0-33.3); Mean Corpuscular Volume 84.3 fL (83.0-100.0); Monocytes % 12.2 %; Neutrophils # 6.6 K/mcL (1.6-8.9); Platelet Count 206 K/mcL (140-400); Red Blood Count 3.96 M/mcL (3.82-4.97); Red Cell Distribution Width 15.2 % (11.5-14.5); Segmented Neutrophils % 77.3 %; White Blood Count 8.5 K/mcL (4.3-11.1)
[2020-10-30 07:02] LABS: BUN/Creatinine Ratio 32 (6-26); Blood Urea Nitrogen 18 mg/dL (8-23); Carbon Dioxide 27 mEq/L (23-29); Chloride 103 mEq/L (98-107); Glucose 97 mg/dL (70-105); Osmolality,Calculated 286 (280-300); Potassium 3.6 mEq/L (3.5-5.1); Sodium 137 mEq/L (136-145); Vancomycin,Trough 11 mcg/mL (5-10); eGFR For African Americans > 60 (> 60); eGFR For Non-African Americans > 60 (> 60)
[2020-10-30] MEDS: MethylPREDNISolone 40 MG/ML VIAL IVP SCH (07:04)
[2020-10-30] MEDS: *HR* Heparin 5,000 UNIT/ML VIAL SQ SCH ×2 (07:04→16:59)
[2020-10-30] MEDS: Loratadine 10 MG TABLET PO SCH (08:53)
[2020-10-30] MEDS: Furosemide 20 MG TABLET PO SCH (08:54)
[2020-10-30] MEDS: Venlafaxine XR (24 HR) 150 MG CAP.ER.24H PO SCH (08:54)
[2020-10-30] MEDS: amLODIPine 5 MG TABLET PO SCH (08:54)
[2020-10-30] MEDS: Aspirin Enteric Coated 81 MG Tablet PO SCH (08:55)
[2020-10-30] MEDS: Fluticasone Propionate Nasal 50 MCG/SPRAY BOTTLE NS SCH (08:56)
[2020-10-30] MEDS: Insulin NPH/REG 70/30 100 UNIT/ML (x5UNIT) SUBQ SCH (09:01)
[2020-10-30] MEDS: Piperacillin/Tazobactam 3.375 GM in 0.9 % Sodium Chloride Mini Bag 100 ML IVPB SCH ×2 (09:10→16:58)
[2020-10-30] MEDS: Budesonide/Formoterol 80/4.5 1 PUFF INH IH SCH ×2 (09:43→22:56)
[2020-10-30] MEDS: DEXTROAMPHETAMINE PO SCH (09:56)
[2020-10-30] MEDS: AMPHETAMINE PO SCH (09:56)
[2020-10-30] MEDS: Vancomycin 1,250 MG/262.5 ML IV.SOLN IVPB SCH (19:11)
[2020-10-30] MEDS: clonazePAM 1 MG TABLET PO PRN (20:43)
[2020-10-30] MEDS: Insulin DETEMIR 100 UNIT/ML X5UNITS SUBQ SCH (20:54)
[2020-10-31] MEDS: Piperacillin/Tazobactam 3.375 GM in 0.9 % Sodium Chloride Mini Bag 100 ML IVPB SCH ×3 (01:14→16:29)
[2020-10-31] MEDS: Ipratropium/Albuterol Neb 3 ML IH SCH ×4 (04:17→22:47)
[2020-10-31] MEDS: *HR* Heparin 5,000 UNIT/ML VIAL SQ SCH ×2 (06:39→17:25)
[2020-10-31] MEDS: Insulin LISPRO 300 UNITS/3 ML VIAL SUBQ SCH ×3 (07:32→16:34)
[2020-10-31 08:25] LABS: Basophils % 0.3 %; Eosinophils # 0.1 K/mcL (0.0-0.6); Eosinophils % 0.9 %; Hematocrit 34.2 % (35.3-44.9); Hemoglobin 10.3 g/dL (11.5-15.4); Immature Granulocytes % 0.9 % (0-4); Lymphocytes # 1.6 K/mcL (0.6-4.6); Lymphocytes % 24.1 %; Mean Corpuscular HGB Conc 30.1 g/dL (31.6-35.5); Mean Corpuscular Hemoglobin 25.9 pg (28.0-33.3); Mean Corpuscular Volume 85.9 fL (83.0-100.0); Mean Platelet Volume 9.7 fL (9.4-12.4); Monocytes % 14.1 %; Platelet Count 224 K/mcL (140-400); Red Blood Count 3.98 M/mcL (3.82-4.97); Red Cell Distribution Width 15.3 % (11.5-14.5); Segmented Neutrophils % 59.7 %; White Blood Count 6.8 K/mcL (4.3-11.1)
[2020-10-31 08:49] LABS: BUN/Creatinine Ratio 27 (6-26); Blood Urea Nitrogen 17 mg/dL (8-23); Calcium 8.6 mg/dL (8.6-10.3); Carbon Dioxide 26 mEq/L (23-29); Chloride 104 mEq/L (98-107); Glucose 70 mg/dL (70-105); Osmolality,Calculated 282 (280-300); Potassium 3.6 mEq/L (3.5-5.1); Sodium 136 mEq/L (136-145); eGFR For African Americans > 60 (> 60); eGFR For Non-African Americans > 60 (> 60)
[2020-10-31] MEDS: Aspirin Enteric Coated 81 MG Tablet PO SCH (10:01)
[2020-10-31] MEDS: Loratadine 10 MG TABLET PO SCH (10:02)
[2020-10-31] MEDS: Venlafaxine XR (24 HR) 150 MG CAP.ER.24H PO SCH (10:03)
[2020-10-31] MEDS: predniSONE 20 MG TABLET PO SCH (10:04)
[2020-10-31] MEDS: Furosemide 20 MG TABLET PO SCH (10:04)
[2020-10-31] MEDS: amLODIPine 5 MG TABLET PO SCH (10:04)
[2020-10-31] MEDS: Fluticasone Propionate Nasal 50 MCG/SPRAY BOTTLE NS SCH (10:05)
[2020-10-31] MEDS: Budesonide/Formoterol 80/4.5 1 PUFF INH IH SCH ×2 (10:49→22:47)
[2020-10-31] MEDS: Insulin DETEMIR 100 UNIT/ML X5UNITS SUBQ SCH (13:55)
[2020-10-31] MEDS: Vancomycin 1,250 MG/262.5 ML IV.SOLN IVPB SCH (18:20)
[2020-10-31] MEDS ORDERED: Insulin DETEMIR 100 UNIT/ML X5UNITS SUBQ SCH (21:00)
[2020-10-31] MEDS ORDERED: Insulin LISPRO 300 UNITS/3 ML VIAL SUBQ SCH (21:30)
[2020-11-01] MEDS: Piperacillin/Tazobactam 3.375 GM in 0.9 % Sodium Chloride Mini Bag 100 ML IVPB SCH ×2 (03:01→07:51)
[2020-11-01 03:35] LABS: Basophils % 0.2 %; Eosinophils % 0.3 %; Hematocrit 31.2 % (35.3-44.9); Hemoglobin 9.8 g/dL (11.5-15.4); Immature Granulocytes % 0.9 % (0-4); Lymphocytes # 0.8 K/mcL (0.6-4.6); Lymphocytes % 13.9 %; Mean Corpuscular HGB Conc 31.4 g/dL (31.6-35.5); Mean Corpuscular Hemoglobin 26.3 pg (28.0-33.3); Mean Corpuscular Volume 83.9 fL (83.0-100.0); Mean Platelet Volume 9.7 fL (9.4-12.4); Monocytes # 0.8 K/mcL (0.0-1.3); Monocytes % 14.4 %; Neutrophils # 4.1 K/mcL (1.6-8.9); Platelet Count 197 K/mcL (140-400); Red Blood Count 3.72 M/mcL (3.82-4.97); Red Cell Distribution Width 14.9 % (11.5-14.5); Segmented Neutrophils % 70.3 %; White Blood Count 5.8 K/mcL (4.3-11.1)
[2020-11-01 03:54] LABS: BUN/Creatinine Ratio 33 (6-26); Blood Urea Nitrogen 18 mg/dL (8-23); Calcium 8.6 mg/dL (8.6-10.3); Carbon Dioxide 26 mEq/L (23-29); Chloride 104 mEq/L (98-107); Glucose 149 mg/dL (70-105); Osmolality,Calculated 287 (280-300); Potassium 3.7 mEq/L (3.5-5.1); Sodium 136 mEq/L (136-145); eGFR For African Americans > 60 (> 60); eGFR For Non-African Americans > 60 (> 60)
[2020-11-01] MEDS: Ipratropium/Albuterol Neb 3 ML IH SCH ×3 (04:03→15:44)
[2020-11-01] MEDS ORDERED: Vancomycin 1,250 MG/262.5 ML IV.SOLN IVPB SCH (06:00)
[2020-11-01] MEDS: *HR* Heparin 5,000 UNIT/ML VIAL SQ SCH (06:12)
[2020-11-01] MEDS: Insulin LISPRO 300 UNITS/3 ML VIAL SUBQ SCH ×3 (07:43→17:10)
[2020-11-01] MEDS: Loratadine 10 MG TABLET PO SCH (07:51)
[2020-11-01] MEDS: Venlafaxine XR (24 HR) 150 MG CAP.ER.24H PO SCH (07:51)
[2020-11-01] MEDS: Aspirin Enteric Coated 81 MG Tablet PO SCH (07:51)
[2020-11-01] MEDS: predniSONE 20 MG TABLET PO SCH (07:52)
[2020-11-01] MEDS: Furosemide 20 MG TABLET PO SCH (07:52)
[2020-11-01] MEDS: amLODIPine 5 MG TABLET PO SCH (07:52)
[2020-11-01] MEDS: Fluticasone Propionate Nasal 50 MCG/SPRAY BOTTLE NS SCH (07:53)
[2020-11-01] MEDS: Budesonide/Formoterol 80/4.5 1 PUFF INH IH SCH (10:28)
[2020-11-01 11:15] VITALS: BP 149/62
[2020-11-01] MEDS ORDERED: Insulin DETEMIR 100 UNIT/ML X5UNITS SUBQ SCH (21:00)
== END 2020-11-01 18:42 | disposition home health service (06) | DRG 637 ==
LOC: EMEROOARM 15:32 → 2NENU 15:32 → SUATTDRO 19:47 → 2NENU 21:16 → SUATTDRO 10-29 15:44
PROVIDERS: ADMIT Internal Medicine; ATTEND Internal Medicine